=== PATIENT | female | born 1955 | race Caucasian/White ===

== ENCOUNTER 2017-10-08 12:36 | Emergency (ER) | payer BC ==
[~2017-10-08] VITALS: Ht 160 cm; Wt 124.0 kg
[~2017-10-08 12:36] MED LIST: ALBU0.08 INH; ALBU1AER9 INH; AMPH20CA3 PO; AMPH30TA2 PO; DICL-201 PO; LSX20 PO; OXYC-106 PO; PRD20 PO; TOPI25TA99 PO
[2017-10-08 12:39] VITALS: TEMP 36.3; Ht 160 cm; Wt 124.0 kg
--- NOTE | 2017-10-08 12:50 | EMERGENCY ROOM VISIT NOTE ---
History Report prepared by Pietro: Carlyle Perea Under the Supervision of: Dr. Eulogio Acosta D.O. First contact with patient: 12:43 Chief Complaint: ALLERGIC REACTION Stated Complaint: SHORTNESS OF BREATH, ITCHING Nursing Triage Summary: pt to the ED after taking amoxicillin for pre medication for dental proceedure and then started to have a allergic reaction. staff there gave her 2 benedryl [employer]ET[employer] and told her to come here History of Present Illness The patient is a 61 year old female who presents to the Emergency Room with complaints of allergic reaction. She went to get a crown and had to premedicate prior to seeing her dentist Dr. Kadeem Crowell. She has surgical history of bilateral knee replacement and shoulder replacement. She took 4 pills of Amoxicillin to premedicate per her surgeon's advice. An hour into getting her crown, her heart started beating faster, her eyes swelled shut, her hands (palms ) started itching, and endorses shortness of breath. She was given Benadryl. Endorses productive cough that began 1 day ago but denies runny nose. Of note, the patient has taken Amoxicillin before without any reactions. The patient has a history of asthma. Denies a history of hyperlipidemia, hypertension, heart disease, and DM. Source of History: patient Onset: prior to arrival Position: other (general) Quality: other (generalized itching) Timing: constant Associated Symptoms: + cough (productive), + SOB Note: Additional Symptoms: Denies runny nose Endorses eye swelling shut, itchy palms, and faster heart palpitations Review of Systems See HPI for pertinent positives & negatives. A total of 10 systems reviewed and were otherwise negative. Past Medical & Surgical Medical Problems: (1) Arthritis (2) Bronchitis (3) cuff arthropathy left shoulder (4) Hx Knee replacement (5) Rotator cuff injury Surgical Problems: (1) H/O spinal fusion Family History Cancer FATHER Gallbladder disease Social History Smoking Status: Former Smoker Marital Status: Housing Status: lives with significant other Occupation Status: employed Current/Historical Medications Scheduled Amphetamine-Dextroamphetamine 10MG (Adderall Xr 10MG), 10 MG PO Q2D Amphetamine-Dextroamphetamine 30MG (Adderall 30MG), 30 MG PO DAILY Diclofenac (Voltaren), 75 MG PO BID Furosemide (Lasix), 20 MG PO Q2D Prednisone (Prednisone), 50 MG PO DAILY Topiramate (Topamax ), 25 MG PO QPM Scheduled PRN Albuterol Hfa (Ventolin Hfa), 2-4 PUFFS INH Q6H PRN for SOB/Wheezing Albuterol Sulf (Albuterol Sulfate), 1 VIAL INH Q4H PRN for SOB/Wheezing Oxycodone/Acetaminophen 10MG/325MG (Percocet 10MG/325MG), 1 TAB PO Q6H PRN for N Prednisone (Prednisone), 20 MG PO UD PRN for N Allergies Coded Allergies: Codeine (Verified Allergy, Severe, RESP DISTRESS, TOLERATED HYDROMORPHONE- SWELLING, 10/08/17) Dust (Unverified Allergy, Unknown, DUST, MOLDS-WHEEZING, 10/08/17) Adhesives (Verified Adverse Reaction, Mild, LOCAL SKIN IRRITATION, ) Aspirin (Verified Adverse Reaction, Unknown, "jittery",RASH, 10/08/17) Physical Exam Vital Signs Date Time Temp Pulse Resp B/P (MAP) Pulse Ox O2 Delivery O2 Flow Rate FiO2 10/08/17 14:21 83 18 155/102 96 10/08/17 12:39 36.3 91 20 139/71 97 Room Air Physical Exam GENERAL: Sitting up in bed, alert, well appearing, well nourished, no distress, non-toxic, full sentences, morbidly obese EYE EXAM: normal conjunctiva. OROPHARYNX: no exudate, no erythema, lips, buccal mucosa, and tongue normal and mucous membranes are moist NECK: supple, no nuchal rigidity, no adenopathy, non-tender LUNGS: Clear to auscultation. Normal chest wall mechanics HEART: no murmurs, S1 normal and S2 normal ABDOMEN: abdomen soft, non-tender, normo-active bowel sounds, no masses, no rebound or guarding. BACK: Back is symmetrical on inspection and there is no deformity, no midline tenderness, no CVA tenderness. SKIN: Diffuse erythematous, macular blanching rash, negative urticaria; positive Nikolsy sign UPPER EXTREMITIES: upper extremities are grossly normal. LOWER EXTREMITIES: No pitting edema. NEURO EXAM: Normal sensorium, cranial nerves II-XII grossly intact, normal speech, no gross weakness of arms, no gross weakness of legs. Gross sensation intact. Medical Decision & Procedures Laboratory Results 10/08/17 13:10 Red Blood Count 5.52, Mean Corpuscular Volume 89.5, Mean Corpuscular Hemoglobin 31.5, Mean Corpuscular Hemoglobin Concent 35.2, Mean Platelet Volume 9.5, Neutrophils (%) (Auto) 81.7, Lymphocytes (%) (Auto) 14.2, Monocytes (%) (Auto) 3.0, Eosinophils (%) (Auto) 0.6, Basophils (%) (Auto) 0.2, Neutrophils # (Auto) 11.67, Lymphocytes # (Auto) 2.03, Monocytes # (Auto) 0.43, Eosinophils # (Auto) 0.09, Basophils # (Auto) 0.03 10/08/17 13:10 Test 10/08/17 13:10 White Blood Count 14.30 K/uL (4.8-10.8) Red Blood Count 5.52 M/uL (4.2-5.4) Hemoglobin 17.4 g/dL (12.0-16.0) Hematocrit 49.4 % (37-47) Mean Corpuscular Volume 89.5 fL (80-100) Mean Corpuscular Hemoglobin 31.5 pg (25-34) Mean Corpuscular Hemoglobin Concent 35.2 g/dl (32-36) Platelet Count 286 K/uL (130-400) Mean Platelet Volume 9.5 fL (7.4-10.4) Neutrophils (%) (Auto) 81.7 % Lymphocytes (%) (Auto) 14.2 % Monocytes (%) (Auto) 3.0 % Eosinophils (%) (Auto) 0.6 % Basophils (%) (Auto) 0.2 % Neutrophils # (Auto) 11.67 K/uL (1.4-6.5) Lymphocytes # (Auto) 2.03 K/uL (1.2-3.4) Monocytes # (Auto) 0.43 K/uL (0.11-0.59) Eosinophils # (Auto) 0.09 K/uL (0-0.5) Basophils # (Auto) 0.03 K/uL (0-0.2) RDW Standard Deviation 44.9 fL (36.4-46.3) RDW Coefficient of Variation 13.6 % (11.5-14.5) Immature Granulocyte % (Auto) 0.3 % Immature Granulocyte # (Auto) 0.05 K/uL (0.00-0.02) Anion Gap 5.0 mmol/L (3-11) Est Creatinine Clear Calc Drug Dose 83.8 ml/min Estimated GFR () 80.5 Estimated GFR (Non- 69.5 BUN/Creatinine Ratio 23.5 (10-20) Calcium Level 9.3 mg/dl (8.5-10.1) Medications Administered Medications (Trade) Dose Ordered Sig/William Route Start Time Stop Time Status Last Admin Dose Admin Methylprednisolone Sodium Succinate (Solu-Medrol IV) 125 mg NOW STAT IV 10/08/17 12:52 10/08/17 12:55 DC 10/08/17 13:12 125 MG Famotidine (Pepcid 20mg Iv Push) 20 mg ONE STAT IV 10/08/17 12:52 10/08/17 12:55 DC 10/08/17 13:12 20 MG ECG Rate (beats per minute): 83 Rhythm: sinus rhythm Findings: PVC, other (normal axis) ED Course ED COURSE: Vital signs were reviewed and showed hypertensive situational. The patients medical record was reviewed The above diagnostic studies were performed and reviewed. ED treatments and interventions as stated above. Susan Harper: The patient was evaluated in room B3. A complete history and physical examination was performed. 1401: Upon reevaluation, the patient has a complete resolution of all symptoms.I discussed my findings with the patient and she understands and agrees with the treatment plan. Based on the patients age, coexisting illnesses, exam and lab findings the decision to treat as an outpatient was made. The patient remained stable while under my care. The patient appeared well at the time of discharge. Medical Decision Differential diagnoses includes but is not limited to acute coronary syndrome, myocardial infarction, pericarditis, pulmonary embolus, aortic dissection, pneumonia, pneumothorax, musculoskeletal, shingles, esophageal. Patient is a 59-year-old female who presents to ER following taking Fortaz amoxicillin to premedicate for a dental procedure. An hour into the procedure she started itching in her hands and having full body erythema. She was given Benadryl. She did have some mild shortness of breath with this. She does admit to a cough and congestion which started yesterday. She has had tingling in her hands recently with taking amoxicillin but has never had this before. CBC shows a mild leukocytosis. BMP was unremarkable. EKG was nondiagnostic. Chest x-ray was unremarkable. Patient completely resolution of her symptoms following IV steroids and famotidine. Rash completely resolved. Patient was discharged follow-up with PCP. I do not believe that this is cardiac at this time so she since has no history of diabetes, hypertension, hyperlipidemia, CAD or sudden in the family at a young age.. Discussed with Pt concerning signs and symptoms to watch out for. Pt was instructed to follow up with their PCP and discussed with the patient their option to return to the ED at anytime for persistent or worsening symptoms. The appropriate anticipatory guidance and out-patient management, including indications for return to the emergency department, were explained at length to the patient and understood. Impression Primary Impression: Allergic reaction Scribe Attestation The scribe's documentation has been prepared under my direction and personally reviewed by me in its entirety. I confirm that the note above accurately reflects all work, treatment, procedures, and medical decision making performed by me. Departure Information Prescriptions Prednisone (PREDNISONE) 50 Mg Tab 50 MG PO DAILY for 1 Day, #1 TAB Prov: Eulogio Acosta, DO 10/08/17 Referrals Tee Bridges M.D. (PCP) Patient Instructions My [facility] Problem Qualifiers Primary Impression: Allergic reaction Encounter type: initial encounter Qualified Codes: T78.40XA - Allergy, unspecified, initial encounter
[2017-10-08] MEDS ORDERED: FAMOTIDINE 20MG/5ML IV PUSH IV STA (12:52)
[2017-10-08] MEDS ORDERED: METHYLPREDNISOLONE 125 MG VIAL IV STA (12:52)
[2017-10-08] MEDS ORDERED: RRALBUTNEB INH (13:08)
[2017-10-08] MEDS ORDERED: VNTHFA/IN INH (13:08)
[2017-10-08] MEDS ORDERED: AMPH10CA3 PO (13:08)
[2017-10-08] MEDS ORDERED: FURO-85 PO (13:08)
--- NOTE | 2017-10-08 13:28 | DIAGNOSTIC IMAGING REPORT ---
CHEST ONE VIEW PORTABLE HISTORY: cough COMPARISON: Chest 07/04/2016. FINDINGS: The lungs are clear. Cardiac silhouette is normal in size. No pleural effusions. No pneumothorax. Left shoulder prosthesis. IMPRESSION: No acute process. Electronically signed by: Lemuel Griffiths M.D. 10/08/2017 1:26 PM Dictated Date/Time: 10/08/2017 1:20 PM
[2017-10-08 13:39] LABS: BASO % 0.2 %; BASO ABS # 0.03 K/uL (0-0.2); COMPLETE YES; EOS % 0.6 %; HEMATOCRIT 49.4 % (37-47); IG% 0.3 %; LYMPH % 14.2 %; LYMPH ABS # 2.03 K/uL (1.2-3.4); MEAN CELL VOLUME 89.5 fL (80-100); MEAN CORPUSCULAR HEMOGLOBIN 31.5 pg (25-34); MEAN CORPUSCULAR HGB CONC 35.2 g/dl (32-36); MEAN PLATELET VOLUME 9.5 fL (7.4-10.4); NEUT % 81.7 %; PLATELET COUNT 286 K/uL (130-400); RED BLOOD COUNT 5.52 M/uL (4.2-5.4)
[2017-10-08 13:43] LABS: BUN/CREATININE RATIO 23.5 (10-20); CALCIUM 9.3 mg/dl (8.5-10.1); CREATININE 0.89 mg/dl (0.60-1.20); POTASSIUM 3.6 mmol/L (3.5-5.1)
[2017-10-08] MEDS ORDERED: PRED50TA PO (14:03)
[2017-10-08 14:21] VITALS: BP 155/102; PULSE 83; O2SAT 96
== END 2017-10-08 14:22 | disposition home or self-care (01) ==
LOC: C.EDB 12:37
DX: T78.40XA Allergy, unspecified, initial encounter (principal); X58.XXXA Exposure to other specified factors, initial encounter; J45.909 Unspecified asthma, uncomplicated; Z87.891 Personal history of nicotine dependence; Z96.653 Presence of artificial knee joint, bilateral; Z96.619 Presence of unspecified artificial shoulder joint; Z98.1 Arthrodesis status

== ENCOUNTER 2023-05-10 08:32 | Inpatient (IN) ==
--- NOTE | 2023-03-26 11:42 | PAT Medication Instructions ---
Medication Instructions Date of Service March 26, 2023 Home Medications albuterol sulfate 2.5 mg/3 mL (0.083 %) solution for nebulization 2.5 mg inhalation Q4H PRN albuterol sulfate 90 mcg/actuation aerosol inhaler (ProAir HFA) 2 puff inhalation Q6H PRN diclofenac sodium 75 mg tablet,delayed release 75 mg PO BID fluticasone propionate 220 mcg/actuation HFA aerosol inhaler (Flovent HFA) 2 puff inhalation BID PRN furosemide 20 mg tablet 20 mg PO Q3D gabapentin 100 mg capsule 100 mg PO TID prednisone 20 mg tablet 20 mg PO DAILY PRN vit C 250 mg-vit E 90 mg-zinc 40 mg-copper 1 hr-ayysdb-ymgapv capsule (PreserVision AREDS-2) 1 tab PO BID multivitamin-ferrous fumarate-folic acid 18 mg-400 mcg tablet (Centrum) 1 tab PO HS Continue as directed prednisone 20 mg tablet 20 mg PO DAILY PRN(if needed) ASK your surgeon for instructions diclofenac sodium 75 mg tablet,delayed release 75 mg PO BID STOP taking 2 weeks before surgery (or as soon as possible if surgery is within 2 weeks) vit C 250 mg-vit E 90 mg-zinc 40 mg-copper 1 bp-khlpbr-rukfuz capsule (PreserVision AREDS-2) 1 tab PO BID DO NOT take the morning of surgery furosemide 20 mg tablet 20 mg PO Q3D Take morning of surgery With a small sip of water, OTHERWISE NOTHING TO EAT OR DRINK AFTER MIDNIGHT: albuterol sulfate 2.5 mg/3 mL (0.083 %) solution for nebulization 2.5 mg inhalation Q4H PRN(if needed) albuterol sulfate 90 mcg/actuation aerosol inhaler (ProAir HFA) 2 puff inhalation Q6H PRN(use if needed; please bring with you to hospital day of surgery if possible) fluticasone propionate 220 mcg/actuation HFA aerosol inhaler (Flovent HFA) 2 puff inhalation BID PRN(if needed) gabapentin 100 mg capsule 100 mg PO TID Take evening before surgery albuterol sulfate 2.5 mg/3 mL (0.083 %) solution for nebulization 2.5 mg inhalation Q4H PRN(if needed) albuterol sulfate 90 mcg/actuation aerosol inhaler (ProAir HFA) 2 puff inhalation Q6H PRN(if needed) fluticasone propionate 220 mcg/actuation HFA aerosol inhaler (Flovent HFA) 2 puff inhalation BID PRN(if needed) gabapentin 100 mg capsule 100 mg PO TID multivitamin-ferrous fumarate-folic acid 18 mg-400 mcg tablet (Centrum) 1 tab PO HS Other Notes If you have any questions please call us at [phone] or [phone] or [phone] or [phone]
--- NOTE | 2023-04-02 10:48 | Anesthesiology Consultation ---
Date of Service April 02, 2023 Assessment & Plan (1) Encounter for pre-operative examination: Chart Review Chart Review: Acceptable Risk for Surgery and Patient seen in Pre Admission Testing - Pt is NOT an ideal OPJ candidate due to BMI (currently scheduled as 23 hours observation) Per [facility] appt on 04/02/23, patient denies any recent travel or large group activities. Pt is vaccinated for Covid. Will leave to surgeon's discretion if p reop Covid testing needed. Educated on importance of using Covid precautions one week prior to surgery Teaching & Discussion Pre-Anesthesia Teaching/Discussion Notes: Instructed NPO after midnight before surgery,except medications with 15 cc of water. Medication instructions provided according to the [facility] guidelines. History Surgery Operation Date: 05/10/23 07:00 Proposed Procedures p Right Total Shoulder Arthroplasty Marcus - Jose Pedroza DO Height/Weight Height: 5 ft 2 in Weight: 129.1 kg Allergies Allergy/AdvReac Type Severity Reaction Status Date / Time aspirin Allergy Severe airway Verified 03/20/23 11:41 closed/hives morphine Allergy Severe trouble Verified 03/20/23 11:41 breathing adhesive AdvReac Mild LOCAL SKIN Verified 03/20/23 11:41 IRRITATION Dust Allergy Unknown DUST, Uncoded 01/23/23 07:35 MOLDS-WHEEZING Medications Home Medications Medication Instructions Recorded Confirmed Last Taken albuterol sulfate 2.5 mg/3 mL 2.5 mg inhalation Q4H PRN 08/01/20 03/20/23 Unknown (0.083 %) solution for nebulization Shortness Of Breath albuterol sulfate 90 mcg/actuation 2 puff inhalation Q6H PRN 08/01/20 03/20/23 Unknown aerosol inhaler (ProAir HFA) Shortness Of Breath diclofenac sodium 75 mg 75 mg PO BID 08/01/20 03/20/23 01/22/23 tablet,delayed release fluticasone propionate 220 2 puff inhalation BID PRN 08/01/20 03/20/23 Unknown mcg/actuation HFA aerosol inhaler Shortness Of Breath (Flovent HFA) furosemide 20 mg tablet 20 mg PO Q3D 08/01/20 03/20/23 01/22/23 gabapentin 100 mg capsule 100 mg PO TID 08/01/20 03/20/23 01/22/23 prednisone 20 mg tablet 20 mg PO DAILY PRN asthma rescue 08/01/20 03/20/23 Unknown kit vit C 250 mg-vit E 90 mg-zinc 40 1 tab PO BID 01/03/23 03/20/23 01/22/23 mg-copper 1 su-sjlcnn-reywru capsule (PreserVision AREDS-2) multivitamin-ferrous 1 tab PO HS 03/20/23 03/20/23 Unknown fumarate-folic acid 18 mg-400 mcg tablet (Centrum) Past Medical History Medical History Allergy-induced asthma inhalers/nebulizer prn breathing well controlled and stable History of anemia IBS (irritable bowel syndrome) Diarrhea - diet dependent Currently stable Morbid obesity with BMI of 50.0-59.9, adult Sleep apnea bipap Exercise / Class Metabolic Activity II 4-5 Yardwork/Stairs/Walk up hill (one flight of stairs- no chest pain or SOB ) Past Family History Family History Other No family history of adverse response to anesthesia Past Surgical History Surgical History History of arthroscopy of right knee History of cataract surgery left/right History of cholecystectomy History of colonoscopy with polypectomy History of cystoscopy History of esophagogastroduodenoscopy (EGD) History of left breast biopsy benign History of left shoulder replacement History of lumbar spinal fusion History of partial hysterectomy History of repair of right rotator cuff History of total left knee replacement (TKR) History of total right knee replacement (TKR) History of wisdom tooth extraction Past Anesthesia History No Hx of Anesthesia Complications (with exception to slow to wake- just groggy- no reintubation or ICU stay ) and No Family Hx of Anesthesia Complications History of PONV No Hx of PONV and No Hx of Motion Sickness Social History Smoking Status: Former smoker tobacco type: cigarettes Do You Dip or Chew Tobacco: No Smoking End Date: 40 years ago Hx Alcohol Use: Yes Alcohol type: wine alcohol intake frequency: a few times a month Hx Substance Use: No substance use type: does not use Review of Systems Patient denies chest pain, shortness of breath, dyspnea on exertion, reflux, cough, wheezing, palpitations. No hx of seizures, stroke, OK. No hx of blood clots or blood transfusions Physical Exam Vital Signs VITALS BP 137/82 P 71 TEMP 98.0 SP02 95% RESP 16 Constitutional no acute distress ENMT Mouth: no TMJ clicking Thyromental Distance: > or= 3.5 Finger Breadths (3.5) Mallampati Class: I (smaller airway) Neck + thick neck; neck extension not limited Respiratory normal respiratory effort; no respiratory distress Auscultation: lungs clear to auscultation bilaterally; no wheezes Cardiovascular Rate/Rhythm: regular rate and regular rhythm Heart Sounds: no murmur Vessels: no carotid bruit Musculoskeletal Spine: no pain with cervical ROM Extremities: extremities normal to inspection Psychiatric Orientation: alert Lab Results Anesthesia Preop Results Results Anesthesia Widget: WBC 7.74 K/ul (4.8-10.8) 04/02/23 Hgb 15.6 g/dl (12.0-16.0) 04/02/23 Hct 47.0 % (37.0-47.0) 04/02/23 Plt 255 K/uL (130-400) 04/02/23 Na 143 mmol/L (136-145) 04/02/23 K 5.1 mmol/L (3.5-5.1) 04/02/23 Cl 108 mmol/L (98-107) H 04/02/23 CO2 29 mmol/L (21-32) 04/02/23 BUN 21 mg/dl (6-23) 04/02/23 Creat 0.61 mg/dl (0.6-1.2) 04/02/23 Glucose Level 101 mg/dl (70-99(Fasting)) H 04/02/23 PT 10.8 Seconds (9.0-12.0) 04/02/23 PTT 25.9 Seconds (21.0-31.0) 04/02/23 INR 1.0 (0.9-1.1) 04/02/23 Blood Type O Positive 04/02/23 Antibody Screen NEGATIVE 04/02/23 Testing Electrocardiogram Date: 04/02/23 Findings: + NSR @ (72bpm ) Normal EKG per cardio Chest X-Ray FINDINGS: Reverse left shoulder arthroplasty. Partially imaged lumbar spinal fusion hardware. Cardiomediastinal and hilar silhouettes are unchanged. No pneumothorax, pleural effusion, airspace consolidation or pulmonary edema. IMPRESSION: No acute process. COVID-19 Risk Screen Screening Information COVID-19 Screen Date: 04/02/23 Exposure 21 Days Family/Household +COVID Last 21 Days: No Exposure 10 Days Any COVID Exposure Last 10 Days: No Symptoms Last 10 Days Experienced COVID Sx Last 10 Days: No + COVID 0-90 Days COVID + in Last 0-90 Days: No Risk Plan COVID Risk Plan: No Risk Identified Patient Education COVID Preop Screening Education Complete: Yes
--- NOTE | 2023-05-09 14:16 | History & Physical Report ---
Date of Service May 09, 2023 Assessment & Plan (1) Rotator cuff arthropathy of right shoulder: We will proceed with a right reverse shoulder arthroplasty. Postoperatively she will be placed in a sling and kept overnight in the hospital for postop medical management. She plans to use energy physical therapy upon discharge. History of Present Illness Chief Complaint: Cuff tear arthropathy of the right shoulder. Primary Care Provider: Tee Bridges MD Susan is a pleasant 67-year-old female who has been dealing with chronic increasing right shoulder pain. I did a right shoulder arthroscopy and rotator cuff repair on her in 2014. She then underwent a left reverse shoulder arthroplasty in 2016. She has done well with that. Her shoulder has been doron thering her more and more. X-rays show signs of severe cuff tear arthropathy of the right shoulder. After failing conservative treatment, she has elected to proceed with a right reverse shoulder arthroplasty. . Allergies Allergy/AdvReac Type Severity Reaction Status Date / Time aspirin Allergy Severe airway Verified 03/20/23 11:41 closed/hives morphine Allergy Severe trouble Verified 03/20/23 11:41 breathing adhesive AdvReac Mild LOCAL SKIN Verified 03/20/23 11:41 IRRITATION Dust Allergy Unknown DUST, Uncoded 01/23/23 07:35 MOLDS-WHEEZING Home Medications Medication Instructions Recorded Confirmed Type albuterol sulfate 2.5 mg/3 mL 2.5 mg inhalation Q4H PRN 08/01/20 03/20/23 History (0.083 %) solution for nebulization Shortness Of Breath albuterol sulfate 90 mcg/actuation 2 puff inhalation Q6H PRN 08/01/20 03/20/23 History aerosol inhaler (ProAir HFA) Shortness Of Breath diclofenac sodium 75 mg 75 mg PO BID 08/01/20 03/20/23 History tablet,delayed release fluticasone propionate 220 2 puff inhalation BID PRN 08/01/20 03/20/23 History mcg/actuation HFA aerosol inhaler Shortness Of Breath (Flovent HFA) furosemide 20 mg tablet 20 mg PO Q3D 08/01/20 03/20/23 History gabapentin 100 mg capsule 100 mg PO TID 08/01/20 03/20/23 History prednisone 20 mg tablet 20 mg PO DAILY PRN asthma rescue 08/01/20 03/20/23 History kit vit C 250 mg-vit E 90 mg-zinc 40 1 tab PO BID 01/03/23 03/20/23 History mg-copper 1 [id number]-vzdicg capsule (PreserVision AREDS-2) multivitamin-ferrous 1 tab PO HS 03/20/23 03/20/23 History fumarate-folic acid 18 mg-400 mcg tablet (Centrum) Past Med/Surg History Medical History Allergy-induced asthma inhalers/nebulizer prn breathing well controlled and stable History of anemia IBS (irritable bowel syndrome) Diarrhea - diet dependent Currently stable Morbid obesity with BMI of 50.0-59.9, adult Sleep apnea bipap Surgical History History of arthroscopy of right knee History of cataract surgery left/right History of cholecystectomy History of colonoscopy with polypectomy History of cystoscopy History of esophagogastroduodenoscopy (EGD) History of left breast biopsy benign History of left shoulder replacement History of lumbar spinal fusion History of partial hysterectomy History of repair of right rotator cuff History of total left knee replacement (TKR) History of total right knee replacement (TKR) History of wisdom tooth extraction Family History Other No family history of adverse response to anesthesia Social History Smoking Status: Former smoker Smoking End Date: 40 years ago; Second Hand Exposure: No; Do You Dip or Chew Tobacco: No; Tobacco Cessation Education Requested by Patient: No Hx Alcohol Use: Yes Alcohol type: wine Hx Substance Use: No Preferred Language: Micronesian Communication Ability: Effective Chronometer Assembler And Adjuster Required: No Beliefs That Will Affect Care: None Current Living Situation: Spouse Other Information That Helps Us Care for You: No Feels Safe at Home: Yes Safety Concerns: Feels Safe At This Time Assistive Devices: BiPap and Glasses Review of Systems All systems reviewed & are unremarkable except as noted in HPI & below. Physical Exam On physical examination of right shoulder, she has decreased range of motion. She has pain with range of motion and crepitus.. Constitutional WD/WN, vitals as above Eyes PERRL, conjunctivae normal, anicteric sclerae ENMT external ear and nose normal, oropharynx normal Neck trachea midline, no thyromegaly Respiratory normal respiratory effort, lungs clear to auscultation Cardiovascular RRR, no murmur, no edema Gastrointestinal (Abdomen) normal bowel sounds, soft, nontender, no hepatosplenomegaly Skin no rashes, warm and dry Psychiatric A+Ox3, euthymic affect Results & Data Results & Data Laboratory Results . Diagnostic Findings X-rays of the right shoulder show advanced cuff tear arthropathy with superior migration of the humeral head on the glenoid.. PG Care Time/CCT Total # of Minutes Spent Total Time Spent with Patient: Total time spent is greater than 50% in coordination of care (as documented) at patient's floor/unit and/or counseling patient: Coding Level of Care Code None Diagnoses Rotator cuff arthropathy of right shoulder M12.811
[~2023-05-10 08:32] MED LIST changes: +ACETAMINOPHEN 500 MG TAB PO SCH; -ALBU0.08 INH; -ALBU1AER9 INH; -AMPH20CA3 PO; -AMPH30TA2 PO; -DICL-201 PO; +FAMOTIDINE 20 MG TAB PO SCH; +GABAPENTIN 300 MG CAP PO SCH; +LR 15ML/HR IV SCH; +LR 60ML/HR IV SCH; -LSX20 PO; +ORTHO JOINT MIX INFIL SCH; -OXYC-106 PO; -PRD20 PO; -TOPI25TA99 PO; +TRANEXAMIC ACID 1,000 MG **IV Intra-op IV SCH; +TRANEXAMIC ACID 1,000 MG **IV Pre-op IV SCH; +dexAMETHasone 4 MG TAB PO SCH
[2023-05-10] MEDS ORDERED: BUPIVACAINE 0.5 % 5 MG/1 ML PF 10ML VIAL ONE (08:53)
[2023-05-10] MEDS ORDERED: MIDAZOLAM HCL 1 MG/ML 2ML VIAL ONE (09:31)
[2023-05-10] MEDS ORDERED: fentaNYL citrate PF 100 MCG/2 ML VIAL ONE (09:31)
--- NOTE | 2023-05-10 10:09 | History & Physical Bridge Note ---
Date of Service May 10, 2023 History & Physical Bridge Note I have examined the patient, reviewed the History & Physical and in the interval since the performance of the History & Physical I have noted the following changes of clinical significance: no changes noted
[2023-05-10] MEDS ORDERED: ATROPINE SULFATE 0.1 MG/ML 10ML SYR IV PRN (10:22)
[2023-05-10] MEDS ORDERED: fentaNYL citrate PF 100 MCG/2 ML VIAL IV PRN (10:22)
[2023-05-10] MEDS ORDERED: ONDANSETRON INJ 2 MG/ML 2 ML VIAL IV PRN ×2 (10:22→15:29)
[2023-05-10] MEDS ORDERED: ePHEDrine sulfate 50 MG/ML AMP IV PRN (10:22)
[2023-05-10] MEDS ORDERED: ORTHO JOINT ANESTHETIC ONE (10:44)
[2023-05-10] MEDS ORDERED: LIDOCAINE 2% 2 ML VIAL/AMP(20MG/ML) INFIL ONE (11:30)
[2023-05-10] MEDS ORDERED: PROPOFOL IV EMULSION 10 MG/ML 20 ML VIAL IV ONE (11:30)
[2023-05-10] MEDS ORDERED: ONDANSETRON INJ 2 MG/ML 2 ML VIAL ONE (11:30)
[2023-05-10] MEDS ORDERED: DEXAMETHASONE SOD INJ 4 MG/ML VIAL ONE (11:30)
[2023-05-10] MEDS ORDERED: KETOROLAC 30 MG/ML VIAL ONE (11:53)
--- NOTE | 2023-05-10 12:21 | Operative Report ---
PG Post Operative Report Pre & Post Diagnosis Operation Date: 05/10/23 11:00 Pre-Op Diagnosis: Cuff tear arthropathy of the right shoulder Post-Op Diagnosis: Cuff tear arthropathy of the right shoulder I identified the patient and participated in the time-out.: Yes Procedure Operation Date: 05/10/23 11:00 Actual Procedures p Right Total Shoulder Arthroplasty Reverse (Right) - Jose Pedroza DO Surgeon Jose Pedroza DO Assistant Produce Manager Jose Bullard PA-C Estimated Blood Loss 250 Findings Consistent with Post-Op Diagnosis Specimens Right humeral head Description of Procedure Implants used: I used a [employer]omet Comprehensive reverse total shoulder arthroplasty system with a size 6 press fit micro humeral stem, a +6 offset humeral tray and a standard humeral bearing, a 25 mm large augment baseplate with a 6.5 mm central screw and superior, posterior and inferior locking screws, and a size 36 mm eccentric glenosphere. Susan arrived at [facility] for the above procedure. She was seen in the preoperative holding area and the operative extremity was identified and signed. She was given a preoperative antibiotic, TXA, and an interscalene nerve block. She was taken back to the operating room, laid on table in supine position, and put under general anesthesia. She was then put into the beachchair position. The shoulder was then prepped and draped in sterile fashion. A timeout was done and the patient and the operative extremity was properly identified. A deltopectoral approach was used. Dissection was taken down through the fascia and the deltoid was retracted laterally and the conjoined tendon was retracted medially. The anterior shoulder was exposed. The biceps tendon was already missing. The subscapularis was then directly released off the lesser tuberosity with a peel technique. The inferior capsule was released and the humeral head was dislocated. A canal finding reamer was sent down the center of the humeral canal. Sequential reaming up to a size 6 reamer was done. Off that reamer, a proximal humeral resection guide was placed. The proximal humerus was resected at 135 of inclination and 25 of retroversion. Osteophytes were then removed and the glenoid was exposed. Time was spent doing a complete capsular and labral release. A [employer] Signature One guide was then attached onto the anterior rim of the glenoid. A 3.2 mm Steinmann pin was then placed in the reverse total shoulder arthroplasty hole. The glenoid baseplate was then reamed. The final size 25 mm large augment baseplate was then impacted in the place. A 6.5 mm central screw was then placed followed by superior, posterior and inferior locking screws. A 36 mm eccentric glenosphere was then impacted into place. Surrounding soft tissues were then injected with 100 cc an orthopedic pain control cocktail. The proximal humerus was then exposed. Sequential broaching of the humerus up to a size 6 broach was done. Off that broach a +6 offset humeral tray was trialed. The shoulder was then reduced, brought through a full range of motion, and felt to be stable. The shoulder was then dislocated and the broach was removed. The final size 6 micro press-fit humeral stem was then impacted into place. A standard humeral bearing was then snapped onto a +6 offset humeral tray. The humeral tray was then impacted onto the humeral stem. The shoulder was once again reduced, brought through a full range of motion, and felt to be stable. Subscapularis was retracted and unable to be repaired. A dilute betadyne lavage was then done for 3 minutes. The joint was then irrigated with normal saline solution. Hemostasis was obtained. The interval was closed with 2-0 Vicryl suture. The skin was then closed with 2-0 Vicryl and jose j. A Silverlon dressing was placed and the arm was rested in a regular arm sling. She was then extubated and transferred to a hospital bed. She taken to the postanesthesia care unit in stable condition. She tolerated the procedure well. Jose Bullard PA-C, was present for the entire procedure. He was critical for patient positioning, prepping, draping, retraction exposure, wound closure and application of sterile dressing. I attest to the content of the Intraoperative Record and any orders documented therein. Any exceptions are noted below.
[2023-05-10] MEDS ORDERED: hydrALAZINE HCL 20 MG/ML VIAL ONE (13:14)
[2023-05-10] MEDS ORDERED: hydrALAZINE HCL 20 MG/ML VIAL IM STA (13:17)
[2023-05-10] MEDS ORDERED: hydrALAZINE HCL 20 MG/ML VIAL IV STA (13:31)
--- NOTE | 2023-05-10 13:34 | XRay Report ---
RIGHT SHOULDER 2 VIEWS CLINICAL HISTORY: Postoperative examination. FINDINGS: 2 portable views of the right shoulder are compared to study dated 01/15/2023. The skeletal structures are osteopenic. A right shoulder arthroplasty is in near anatomic alignment. No acute frac ture is seen. Productive degenerative change is noted at the acromioclavicular joint. Skin clips, sub cutaneous gas, and soft tissue swelling overlying the right shoulder are expected postsurgical findin gs. The visualized right lung parenchyma appears clear noting platelike atelectasis. IMPRESSION: Expected postoperative findings status post right shoulder arthroplasty. No acute fractur e is seen. Electronically signed by: Conor Herrmann M.D. 05/10/2023 1:33 PM
--- NOTE | 2023-05-10 13:42 | Anesthesiology Progress Note ---
Date of Service May 10, 2023 Anesthesia Post Procedure Vital Signs Vital Signs: Temp Pulse Resp BP Pulse Ox O2 Del Method O2 Flow Rate 05/10/23 13:40 73 18 150/90 H 96 Nasal Cannula 2 05/10/23 13:30 97.5 F L 78 18 155/93 H 96 Nasal Cannula 4 05/10/23 13:20 73 20 161/92 H 95 Nasal Cannula 4 05/10/23 13:10 78 19 168/108 H 95 Oxymask 5 05/10/23 13:00 76 20 163/91 H 97 Oxymask 5 05/10/23 12:50 70 17 159/100 H 95 Oxymask 5 05/10/23 12:43 97.3 F L 74 20 163/107 H 95 Oxymask 5 05/10/23 09:23 98.2 F 84 20 181/96 H 93 Room Air Pain Intensity Right Shoulder: Pain Intensity: 5 Transfer of Care Handoff Completed per policy Notes Mental Status: alert / awake / arousable and participated in evaluation Patient Amnestic to Procedure: Yes Nausea / Vomiting: adequately controlled Pain: adequately controlled Airway Patency, RR, SpO2: stable & adequate BP & HR: stable & adequate Hydration State: stable & adequate Anesthetic Complications: no major complications apparent and Pt Satisfied with anesthetic care
[2023-05-10] MEDS ORDERED: predniSONE 20 MG TAB PO PRN (15:29)
[2023-05-10] MEDS ORDERED: METOCLOPRAMIDE HCL INJ 5 MG/ML 2 ML VIAL IV PRN (15:29)
[2023-05-10] MEDS ORDERED: SODIUM CHLORIDE 0.9% 1000ML 1,000 ML IV SCH (15:29)
[2023-05-10] MEDS ORDERED: NALOXONE HCL 0.4 MG/1 ML VIAL/CARP IV PRN (15:29)
[2023-05-10] MEDS ORDERED: bisacodyL 10 MG SUPP PR PRN (15:29)
[2023-05-10] MEDS ORDERED: HYDROmorphone INJ 0.5 MG/0.5 ML SYR IV PRN (15:29)
[2023-05-10] MEDS ORDERED: ALBUTEROL 0.083% NEBU SOLN 3 ML VIAL INH PRN (15:29)
[2023-05-10] MEDS ORDERED: ALBUTEROL HFA 8 GM INHALER INH PRN (15:29)
[2023-05-10] MEDS ORDERED: MAGNESIUM HYDROXIDE SUSP 30 ML UDC PO PRN (15:29)
[2023-05-10] MEDS ORDERED: FLUTICASONE FUROATE 200MCG 14 PUFFS/INHALER INH PRN (15:53)
[2023-05-10] MEDS: oxyCODONE HCL IR 5 MG TAB (IMMEDIATE RELEASE) PO PRN (16:21)
[2023-05-10] MEDS: GABAPENTIN 100 MG CAP PO SCH ×2 (16:49→20:36)
[2023-05-10] MEDS: ceFAZolin 2000MG 2,000 MG/15 ML SYR IV SCH (18:28)
--- NOTE | 2023-05-10 18:54 | Hospitalist Consultation ---
Date of Consultation May 10, 2023 Assessment & Plan (1) Acute postoperative respiratory insufficiency: (2) Status post reverse total replacement of right shoulder: - Pain management, bowel regimen and DVT ppx per the primary team - PT/OT consults, pt is planning on outpatient therapy - Follow am CBC to monitor for acute blood loss, last Hgb was 15.6 on 04/02/23 (3) Sleep apnea: (4) Chronic diastolic CHF (congestive heart failure): - Appears on Xray of the R shoulder from today that she is volume overloaded, checking CXR stat, previous cxr was from over 1 mo ago and was clear - Pt is on 4 L via NC with sats 94%, does not normally require O2 during day, wears bipap HS - Last dose of lasix 20 mg po was on Saturday, will administer 40 mg IV lasix now, takes 20 mg po MWF normally - Place pur wick, strict I/Os - Turn off maintenance fluids since she is tolerating po without difficulty - Check BMP, troponin - Check EKG stat - Has hx of allergies and asthma - pt feels only slightly improved with a breathing treatment (5) History of anemia: - Cont MVI with iron (6) IBS (irritable bowel syndrome): - Last BM was this morning, continue stool softeners and miralax (7) Morbid obesity with BMI of 50.0-59.9, adult: BMI of 52.7, diet and exercise to be encouraged throughout hospital stay DVT PPx: - teds, scds CODE: Full code Dispo: From home, likely to remain in the hospital x 1-2 days A total of 45 minutes were spent with greater than 50% of that time face to face with the patient, personally reviewing all current laboratories, imaging studies, past medication reconciliation, outpatient chart review, and discussion with specialists to collaborate care for the patient with attending. Please see attending documentation for corrections and/or additions. Supervising Physician Co-Signing Physician Notes I have seen and examined the patient and have discussed the case with the provider above. I agree with the assessment and plan as stated. 67 yo morbidly obese female off lasix at home for 3 days is unable to successfully wean off oxygen 2/2 pulmonary edema. She is breathing comfortable after lasix 40mg IV. Nino placed. Will plan to continue her oral lasix in am, however, if any further respiratory issues ensue or she needs multiple doses of intravenous lasix, consider transferring to telemetry. Hemodynamically stable and afebrile. Oxygenating 98% on 4LPM via NC. My physical exam reflects that listed above. Medications reviewed. Thank you for this consultation. DO Tano History of Present Illness Reason for Consultation: Medical management, Shortness of breath Requesting Physician: Dr. Pedroza Attending Physician: Jose Pedroza DO History of Present Illness This is a 67 yo F with PMhx of chronic diastolic CHF, IBS, morbid obesity with BMI of 52.7, sleep apnea on BiPAP, history of anemia, allergy induced asthma, who presented today for elective right total reverse shoulder replacement by Dr. Pedroza. Pt had been doing well recently. Multiple family members are present at bedside during our conversation. She reports increased shortness of breath since being out of surgery. She describes a heaviness in her chest and feels like she is working more to breath. Pts right arm is still numb s/p surgery but is able to move her hands. Denies any sharp stabbing chest pain. Whenever she got up to walk to the bathroom to urinate, she tacho lightheaded and dizzy a bit ago, denies any falls, but did need the nurse to help her. At baseline does not require supplemental O2, wears a BiPAP at night routinely, she is currently requiring 4 L nasal cannula with O2 sats 94%. Last BM was this morning. Pt reports she hasn't taken lasix since Saturday, and normally takes this MWF. Pt denies feeling more edematous in her hands or feet. Allergies Allergy/AdvReac Type Severity Reaction Status Date / Time aspirin Allergy Severe airway Verified 05/10/23 09:19 closed/hives morphine Allergy Severe trouble Verified 05/10/23 09:19 breathing adhesive AdvReac Mild LOCAL SKIN Verified 05/10/23 09:19 IRRITATION Home Medications Medication Instructions Recorded Confirmed Type albuterol sulfate 2.5 mg/3 mL 2.5 mg inhalation Q4H PRN 08/01/20 05/10/23 History (0.083 %) solution for nebulization Shortness Of Breath albuterol sulfate 90 mcg/actuation 2 puff inhalation Q6H PRN 08/01/20 05/10/23 H istory aerosol inhaler (ProAir HFA) Shortness Of Breath diclofenac sodium 75 mg 75 mg PO BID 08/01/20 05/10/23 History tablet,delayed release fluticasone propionate 220 2 puff inhalation BID PRN 08/01/20 05/10/23 History mcg/actuation HFA aerosol inhaler Shortness Of Breath (Flovent HFA) furosemide 20 mg tablet 20 mg PO UD 08/01/20 05/10/23 History gabapentin 100 mg capsule 100 mg PO TID 08/01/20 05/10/23 History prednisone 20 mg tablet 20 mg PO DAILY PRN asthma rescue 08/01/20 05/10/23 History kit vit C 250 mg-vit E 90 mg-zinc 40 1 tab PO BID 01/03/23 05/10/23 History mg-copper 1 cr-ocxkoa-npbpao capsule (PreserVision AREDS-2) multivitamin-ferrous 1 tab PO HS 03/20/23 05/10/23 History fumarate-folic acid 18 mg-400 mcg tablet (Centrum) duloxetine 30 mg capsule,delayed 30 mg PO DAILY 05/10/23 05/10/23 History release Patient History Medical History Allergy-induced asthma inhalers/nebulizer prn breathing well controlled and stable Chronic diastolic CHF (congestive heart failure) History of anemia IBS (irritable bowel syndrome) Diarrhea - diet dependent Currently stable Morbid obesity with BMI of 50.0-59.9, adult Sleep apnea bipap Surgical History History of arthroscopy of right knee History of cataract surgery left/right History of cholecystectomy History of colonoscopy with polypectomy History of cystoscopy History of esophagogastroduodenoscopy (EGD) History of left breast biopsy benign History of left shoulder replacement History of lumbar spinal fusion History of partial hysterectomy History of repair of right rotator cuff History of total left knee replacement (TKR) History of total right knee replacement (TKR) History of wisdom tooth extraction Family History Other No family history of adverse response to anesthesia Social History Smoking Status: Former smoker Smoking End Date: 40 years ago; Second Hand Exposure: No; Do You Dip or Chew Tobacco: No; Tobacco Cessation Education Requested by Patient: No Hx Alcohol Use: Yes Alcohol type: wine Hx Substance Use: No Preferred Language: Serbian Communication Ability: Effective Die Press Operator Required: No Beliefs That Will Affect Care: None Current Living Situation: Spouse Other Information That Helps Us Care for You: No Feels Safe at Home: Yes Safety Concerns: Feels Safe At This Time Assistive Devices: BiPap and Glasses Review of Systems Review of Systems: Constitutional: No fever, sweats or chills Eyes: No diplopia, no worsening or blurred vision ENT: normal hearing, no trouble swallowing Respiratory: No cough, sputum, + chest heaviness and increased shortness of breath at rest as per HPI Cardiovascular: No chest pain, tightness or palpitations, + lightheadedness and dizziness with standing Abdomen: No pain, nausea, vomiting, diarrhea or constipation, last BM today Musculoskeletal: No joint pain, calf pain, swelling Neurologic: No weakness, numbness/tingling, or balance problems Psychiatric: No anxiety or depression Skin: No rash or itch Physical Exam Physical Exam: General: awake, alert, no apparent distress, + morbidly obese BMI 52.7 Head: Normocephalic, atraumatic ENT: PERRL, EOMI, no pharyngeal exudate, mucous membranes moist Chest: Wearing 4 L NC with O2 sats 94%, breath sounds are diminished on the right side throughout, no crackles wheezing or rails, Cardiac: Regular rate and rhythm, no murmur, no JVD, normal peripheral pulses, good capillary refill Abdominal: NABS x 4 quadrants, soft, nondistended, nontender to palpation, no rebound or guarding Extremities: Right shoulder dressing C/D/I, arm in sling, ice pack in place. Otherwise normal inspection, no peripheral edema or erythema, calfs nontender to palpation Psych: Normal mood and affect Neuro: AAO x 3, strength intact bilaterally and rated 5/5, no motor deficits, speech is clear, R hand peripheral sensory deficits with numbness s/p surgery, no other peripheral sensory deficits Results & Data Results & Data Vital Signs (Past 12 Hours) Vital Signs Temp Pulse Resp BP Pulse Ox O2 Del Method O2 Flow Rate 05/10/23 18:38 36.7 C 96 H 18 122/72 94 Nasal Cannula 4 05/10/23 17:16 36.7 C 103 H 18 119/56 L 92 Nasal Cannula 2 05/10/23 15:25 Nasal Cannula 2 05/10/23 16:55 91 H 18 95 Nasal Cannula 2 05/10/23 16:17 36.8 C 87 16 142/78 H 94 Nasal Cannula 3 05/10/23 15:45 36.5 C 82 18 136/85 94 Nasal Cannula 2 05/10/23 15:15 36.7 C 84 18 147/88 H 93 Nasal Cannula 2 05/10/23 14:30 36.4 C L 80 19 144/88 H 93 Nasal Cannula 2 05/10/23 14:15 36.4 C L 78 17 156/87 H 95 Nasal Cannula 2 05/10/23 14:00 76 17 139/84 95 Nasal Cannula 2 05/10/23 13:50 73 17 133/91 95 Nasal Cannula 2 05/10/23 13:45 75 17 145/88 H 96 Nasal Cannula 2 05/10/23 13:40 73 18 150/90 H 96 Nasal Cannula 2 05/10/23 13:30 36.4 C L 78 18 155/93 H 96 Nasal Cannula 4 05/10/23 13:20 73 20 161/92 H 95 Nasal Cannula 4 05/10/23 13:10 78 19 168/108 H 95 Oxymask 5 05/10/23 13:00 76 20 163/91 H 97 Oxymask 5 05/10/23 12:50 70 17 159/100 H 95 Oxymask 5 05/10/23 12:43 36.3 C L 74 20 163/107 H 95 Oxymask 5 05/10/23 09:23 36.8 C 84 20 181/96 H 93 Room Air Laboratory Results BMP 05/10/23 19:46 Sodium 137 Potassium 4.2 Chloride 104 Carbon Dioxide 23 BUN 18 Creatinine 0.98 Glucose 234 H Calcium 8.6 Diagnostic Findings Shoulder X-Ray 05/10/23 12:43 RIGHT SHOULDER 2 VIEWS CLINICAL HISTORY: Postoperative examination. FINDINGS: 2 portable views of the right shoulder are compared to study dated 01/15/2023. The skeletal structures are osteopenic. A right shoulder arthroplasty is in near anatomic alignment. No acute fracture is seen. Productive degenerative change is noted at the acromioclavicular joint. Skin clips, subcutaneous gas, and soft tissue swelling overlying the right shoulder are expected postsurgical findings. The visualized right lung parenchyma appears clear noting platelike atelectasis. IMPRESSION: Expected postoperative findings status post right shoulder arthroplasty. No acute fracture is seen. Electronically signed by: Conor Herrmann M.D. 05/10/2023 1:33 PM
[2023-05-10] MEDS ORDERED: FUROSEMIDE 40 MG/4 ML VIAL IV ONE (19:19)
[2023-05-10 20:34] LABS: BUN Creatinine Ratio 18.4 (10-20); Calcium 8.6 mg/dl (8.6-10.3); Creatinine Clr Calc Pharmacy 71.4 ml/min; Est GFR (African American) 68.7 ml/min; Est GFR (Non-African American) 59.3 ml/min; Potassium 4.2 mmol/L (3.5-5.1)
[2023-05-10] MEDS: SENNA 8.6 MG TAB PO SCH (20:36)
[2023-05-10] MEDS: DOCUSATE SODIUM 100 MG CAP PO SCH (20:36)
[2023-05-10 20:41] LABS: Troponin I High Sensitivity 7.5 pg/ml (0-14)
[2023-05-10] MEDS ORDERED: NON-FORMULARY MEDICATION (Vit C,E-Zn-Coppr-Lutein-Zeaxan [Preservision Areds-2] 250-90-40- PO SCH (21:00)
[2023-05-10] MEDS: ACETAMINOPHEN 500 MG TAB PO SCH (22:33)
[2023-05-11] MEDS: oxyCODONE HCL IR 5 MG TAB (IMMEDIATE RELEASE) PO PRN ×3 (01:40→23:55)
[2023-05-11] MEDS: ceFAZolin 2000MG 2,000 MG/15 ML SYR IV SCH (01:51)
[2023-05-11] MEDS: ACETAMINOPHEN 500 MG TAB PO SCH ×3 (05:55→21:28)
[2023-05-11] MEDS ORDERED: dexAMETHasone 4 MG TAB PO SCH (08:00)
--- NOTE | 2023-05-11 08:16 | XRay Report ---
XR chest 1V portable CLINICAL HISTORY: Shortness of breath. COMPARISON STUDY: Chest radiograph April 02, 2023. FINDINGS: Recent right shoulder arthroplasty is partially imaged. There is also a left shoulder arthr oplasty. Mild to moderate elevation of the right hemidiaphragm has developed. Linear right lung opaci ties favor atelectasis. No consolidation is identified. No evidence for pulmonary edema. Cardiac size is within normal limits. IMPRESSION: 1. Interval development of mild to moderate elevation of the right hemidiaphragm. 2. Linear right lung opacities suggestive of atelectasis. 3. Recent right shoulder arthroplasty. ACT 112: Negative or not required by law. Electronically signed by: Francis Cash M.D. 05/11/2023 8:14 AM
[2023-05-11] MEDS: MULTIVITAMIN TAB PO SCH (08:23)
[2023-05-11] MEDS: DULoxetine HCL 20 MG CAP PO SCH (08:23)
[2023-05-11] MEDS: DOCUSATE SODIUM 100 MG CAP PO SCH ×2 (08:23→20:42)
[2023-05-11] MEDS: GABAPENTIN 100 MG CAP PO SCH ×3 (08:24→20:43)
--- NOTE | 2023-05-11 08:49 | Electrocardiogram Report ---
Test Reason : Blood Pressure : / mmHG Vent. Rate : 100 BPM Atrial Rate : 100 BPM P-R Int : 170 ms QRS Dur : 092 ms QT Int : 310 ms P-R-T Axes : 057 005 017 degrees QTc Int : 399 ms Poor data quality, interpretation may be adversely affected Normal sinus rhythm Diffuse Minor Nonspecific T wave abnormality Abnormal ECG When compared with ECG of 02-APR-2023 10:38, Nonspecific T wave abnormality now present Confirmed by Rodri Kraus ([id number]) on 05/11/2023 8:48:58 AM Referred By: Jose Pedroza Confirmed By:Rodri Kraus
[2023-05-11] MEDS ORDERED: FUROSEMIDE 20 MG TAB PO SCH (09:00)
--- NOTE | 2023-05-11 09:39 | Orthopedic Progress Note ---
Date of Service May 11, 2023 Assessment & Plan (1) Status post reverse total replacement of right shoulder: She is doing well with her shoulder but she is having trouble with her pulmonary function. I think the combination of the hemidiaphragm from the nerve block as well as some fluid overload. She was started on Lasix to help with the fluid. We will continue to monitor her her pulmonary function today. We will hold any discharge for today. We will see how she is doing tomorrow. Idalia Davis was seen and examined at bedside this morning. Unfortunately she still having trouble with her pulmonary function. She is currently on 4 L of oxygen b y nasal cannula. She was seen by the hospitalist yesterday. She has a little bit of a hemidiaphragm from the nerve block and she is dealing with some fluid overload. She was started on the Lasix. She still in trouble getting a deep breath. She is not having any pain in the shoulder. She has no other complaints.. Review of Systems All systems reviewed & are unremarkable except as noted in HPI & below. Physical Exam On physical examination of right shoulder, the dressing is clean and dry. She is wearing her sling as instructed. The nerve block is still in effect.. Results & Data Results & Data Laboratory Results . Diagnostic Findings Postoperative x-rays of the right shoulder show the prosthesis to be in anatomic alignment without any evidence of fracture, cage, or loosening. PG Care Time/CCT Total # of Minutes Spent Total Time Spent with Patient: Total time spent is greater than 50% in coordination of care (as documented) at patient's floor/unit and/or counseling patient: Coding Level of Care Code 09116 Post Operative Follow-Up Diagnoses Status post reverse total replacement of right shoulder Z96.611
[2023-05-11] MEDS ORDERED: FUROSEMIDE 40 MG/4 ML VIAL IV STA (12:19)
--- NOTE | 2023-05-11 13:23 | Hospitalist Progress Note ---
Date of Service May 11, 2023 Assessment & Plan (1) Acute postoperative respiratory insufficiency: Plan: Multifactorial-effect of medications especially anesthetics, history of diastolic heart failure and complicated by sleep apnea and obesity Management as below (2) Status post reverse total replacement of right shoulder: Plan: - Pain management, bowel regimen and DVT ppx per the primary team - PT/OT consults, pt is planning on outpatient therapy - Follow am CBC to monitor for acute blood loss, last Hgb was 15.6 on 04/02/23 -Management as per Ortho -We will get CBC tomorrow (3) Sleep apnea: (4) Chronic diastolic CHF (congestive heart failure): Plan: - Acute on chronic diastolic CHF and is complicated by fluid overload and anesthetic medication with decreasing respiratory effort - Pt is on 4 L via NC with sats 94%, does not normally require O2 during day, wears bipap HS - Last dose of lasix 20 mg po was on Saturday, will administer 40 mg IV lasix now, takes 20 mg po MWF normally - Place pur wick, strict I/Os -Condition has not improved and only has 572 of mL of fluid out and the patient remains short of breath at rest -IV fluid has been stopped -We will give more IV Lasix and monitor intake output -Reviewed EKG with diffuse nonspecific T wave changes without any elevation of troponin. Doubt any ACS - Has hx of allergies and asthma - pt feels only slightly improved with a breathing treatment -We will observe (5) History of anemia: Plan: - Cont MVI with iron (6) IBS (irritable bowel syndrome): Plan: - Last BM was this morning, continue stool softeners and miralax (7) Morbid obesity with BMI of 50.0-59.9, adult: Plan: BMI of 52.7, diet and exercise to be encouraged throughout hospital stay DVT PPx: - teds, scds CODE: Full code Dispo: From home, likely to remain in the hospital x 1-2 days Admission and Anticipated Discharge Date Admission Date: May 10, 2023 Subjective 05/11/2023 The patient was seen and examined in medical floor She is a status post right total shoulder arthroplasty on 05/10/2023 Besides pain in the right shoulder she complains to have shortness of breath following surgery and that has not improved so far Denies any chest pain or palpitation Does not have any fever and or chills and no nausea and or vomiting She has been requiring 4 L to maintain saturation Review of Systems Review of Systems: All systems reviewed and are unremarkable except as noted below Respiratory: Shortness of breath at rest Musculoskeletal: Right shoulder is in sling with increasing pain with movement Physical Exam Physical Exam: Lying in bed with moderate shortness of breath at rest Constitutional: well developed, well nourished, + ill appearing and + morbidly obese Eyes: PERRL, conjunctivae normal, anicteric sclerae ENMT: external ear and nose normal, oropharynx normal Neck: trachea midline, no thyromegaly Respiratory: + respiratory distress (Moderate distress at rest) Auscu ltation: + diminished lung sounds and + crackles (Bibasally) Cardiovascular: Rate/Rhythm: regular rate and regular rhythm; not tachycardic Heart Sounds: normal S1 and normal S2; no murmur Extremities: + edema (Trace edema bilaterally) Gastrointestinal (Abdomen): Inspection/Auscultation: normal bowel sounds; abdomen not distended Percussion/Palpation: abdomen soft; abdomen nontender Musculoskeletal: Right shoulder arthroplasty, right upper extremity is in sling Neurologic: Alert, awake and oriented x3. Generally weak without any focal neurodeficit Psychiatric: A+Ox3, euthymic affect Lymphatic: no cervical or axillary lymphadenopathy Results & Data Results & Data Vital Signs (Past 12 Hours) Vital Signs Temp Pulse Resp BP Pulse Ox O2 Del Method O2 Flow Rate 05/11/23 12:05 37.2 C 84 18 141/83 H 93 Nasal Cannula 4 05/11/23 08:30 Nasal Cannula 4 05/11/23 07:32 36.8 C 86 18 124/76 94 Nasal Cannula 4 05/11/23 04:04 36.9 C 89 18 117/74 93 Nasal Cannula [address] [facility] 05/10/23 19:46 Sodium 137 Potassium 4.2 Chloride 104 Carbon Dioxide 23 BUN 18 Creatinine 0.98 Glucose 234 H Calcium 8.6 Medications Administered Current Inpatient Medications Acetaminophen (Acetaminophen 500 Mg Tab) 1,000 mg PO Q8 ON LICENSE OF [facility] Stop: 06/09/23 21:59 Last Admin: 05/11/23 12:56 Dose: 1,000 mg Albuterol (Albuterol 0.083% Nebu Soln 3 Ml Vial) 2.5 mg INH Q4R PRN; Protocol PRN Reason: Shortness Of Breath Stop: 06/09/23 15:28 Last Admin: 05/10/23 16:55 Dose: 2.5 mg Albuterol (Albuterol Hfa 8 Gm Inhaler) 2 puffs INH Q6R PRN PRN Reason: Shortness Of Breath Stop: 06/09/23 15:28 Bisacodyl (Bisacodyl 10 Mg Supp) 10 mg [place] DAILY PRN PRN Reason: Constipation Stop: 06/09/23 15:28 Docusate Sodium (Docusate Sodium 100 Mg Cap) 100 mg PO BID ON LICENSE OF [facility] Stop: 06/09/23 20:59 Last Admin: 05/11/23 08:23 Dose: 100 mg Duloxetine HCl (Duloxetine Hcl 20 Mg Cap) 20 mg PO DAILY ON LICENSE OF [facility] Stop: 06/10/23 08:59 Last Admin: 05/11/23 08:23 Dose: 20 mg Fluticasone Furoate (Fluticasone Furoate 200mcg 14 Puffs/Inhaler) 1 puffs INH DAILY PRN PRN Reason: Shortness Of Breath Stop: 06/09/23 15:52 Furosemide (Furosemide 20 Mg Tab) 20 mg PO Q3D ON LICENSE OF [facility] Stop: 06/10/23 08:59 Last Admin: 05/11/23 08:23 Dose: 20 mg Gabapentin (Gabapentin 100 Mg Cap) 100 mg PO TID ON LICENSE OF [facility] Stop: 06/09/23 15:59 Last Admin: 05/11/23 12:56 Dose: 100 mg Hydromorphone HCl (Hydromorphone Inj 0.5 Mg/0.5 Ml Syr) 0.5 mg IV Q4H PRN PRN Reason: Pain or Pre PT Stop: 05/24/23 15:28 Magnesium Hydroxide (Magnesium Hydroxide Susp 30 Ml Udc) 30 ml PO Q6H PRN PRN Reason: Constipation Stop: 06/09/23 15:28 Metoclopramide HCl (Metoclopramide Hcl Inj 5 Mg/Ml 2 Ml Vial) 10 mg IV Q6H PRN PRN Reason: Nausea And Vomiting Stop: 06/09/23 15:28 Multivitamins (Multivitamin Tab) 1 tab PO QAM ON LICENSE OF [facility] Stop: 06/10/23 08:59 Last Admin: 05/11/23 08:23 Dose: 1 tab Naloxone HCl (Naloxone Hcl 0.4 Mg/1 Ml Vial/Carp) 0.1 mg IV Q5M PRN PRN Reason: Oversedation/Resp Depression Stop: 06/09/23 15:28 Ondansetron HCl (Ondansetron Inj 2 Mg/Ml 2 Ml Vial) 4 mg IV Q6H PRN PRN Reason: Nausea And Vomiting Stop: 06/09/23 15:28 Oxycodone HCl (Oxycodone Hcl Ir 5 Mg Tab (Immediate Release)) 5 - 10 mg PO Q4H PRN PRN Reason: Pain or Pre PT Stop: 05/24/23 15:28 Last Admin: 05/11/23 01:40 Dose: 10 mg Sennosides (Senna 8.6 Mg Tab) 17.2 mg PO HS [facility] Stop: 06/09/23 20:59 Last Admin: 05/10/23 20:36 Dose: 17.2 mg
[2023-05-11] MEDS ORDERED: FUROSEMIDE 40 MG/4 ML VIAL IV ONE (17:00)
[2023-05-11] MEDS: SENNA 8.6 MG TAB PO SCH (20:42)
[2023-05-12] MEDS: ACETAMINOPHEN 500 MG TAB PO SCH ×3 (05:47→21:53)
[2023-05-12 06:04] LABS: Basophils # (auto) 0.03 K/uL (0-0.2); Basophils % (auto) 0.2 %; Hematocrit (blood only) 41.7 % (37.0-47.0); Hemoglobin 13.9 g/dl (12.0-16.0); Immature Granulocytes # (auto) 0.06 K/uL (0.01-0.20); Immature Granulocytes % (auto) 0.5 %; Mean Corpuscular Hemoglobin 30.7 pg (25.0-34.0); Mean Corpuscular Hgb Conc 33.3 g/dL (32.0-36.0); Mean Corpuscular Volume 92.1 fL (80.0-100.0); Mean Platelet Volume 8.8 fL (9.4-12.4); Monocytes # (auto) 1.05 K/uL (0.11-0.59); Monocytes % (auto) 8.2 %; Neutrophils # (auto) 9.32 K/uL (1.40-6.50); Neutrophils % (auto) 73.1 %; Platelet Count 250 K/uL (130-400); RDW Standard Deviation 47.7 fL (36.4-46.3); Red Blood Count 4.53 M/uL (4.20-5.40); White Blood Count 12.76 K/ul (4.8-10.8)
[2023-05-12 06:28] LABS: BUN Creatinine Ratio 46.6 (10-20); Calcium 8.7 mg/dl (8.6-10.3); Creatinine Clr Calc Pharmacy 120.6 ml/min; Est GFR (African American) 109.8 ml/min; Est GFR (Non-African American) 94.7 ml/min; Magnesium 2.2 mg/dl (1.7-2.4); Phosphorus 2.7 mg/dl (2.5-4.9); Potassium 3.9 mmol/L (3.5-5.1)
[2023-05-12] MEDS: DOCUSATE SODIUM 100 MG CAP PO SCH ×2 (08:10→20:05)
[2023-05-12] MEDS: DULoxetine HCL 20 MG CAP PO SCH (08:11)
[2023-05-12] MEDS: GABAPENTIN 100 MG CAP PO SCH ×3 (08:11→20:03)
[2023-05-12] MEDS: MULTIVITAMIN TAB PO SCH (08:23)
--- NOTE | 2023-05-12 09:20 | Orthopedic Progress Note ---
Date of Service May 12, 2023 Assessment & Plan (1) Status post reverse total replacement of right shoulder: With regards to the right shoulder, she is doing fairly well. With regards to her postoperative hypoxia, she is still requiring 4 L of oxygen by nasal cannula. The hospitalist is working at decreasing the hypoxia. She is receiving IV Lasix. She is using the incentive spirometer. Hopefully, the nursing staff can try to wean her off her oxygen a little bit today. It seems the nerve block is worn off and she is now able to take a deep breath. She is orthopedically stable for discharge when medically ready. If she does very well today she can still be discharged home, however, I am anticipating her still being here tomorrow. We will see how she does throughout the day today. Idalia Davis was seen and examined at bedside this morning. Overall she is slightly improved. She can take a deep breath now. Nerve block is wearing off. She received 2 doses of IV Lasix yesterday. She says that she has been voiding a lot. She is still requiring oxygen. She has no new complaints.. Review of Systems All systems reviewed & are unremarkable except as noted in HPI & below. Physical Exam On physical examination of the right shoulder, she has active motion of her hand and wrist. She is wearing a sling as instructed. The dressing is clean and dry.. Results & Data Results & Data Laboratory Results . Diagnostic Findings . PG Care Time/CCT Total # of Minutes Spent Total Time Spent with Patient: Total time spent is greater than 50% in coordination of care (as documented) at patient's floor/unit and/or counseling patient: Coding Level of Care Code 08084 Post Operative Follow-Up Diagnoses Status post reverse total replacement of right shoulder Z96.611
[2023-05-12] MEDS: oxyCODONE HCL IR 5 MG TAB (IMMEDIATE RELEASE) PO PRN ×2 (10:41→20:03)
--- NOTE | 2023-05-12 14:57 | Hospitalist Progress Note ---
Date of Service May 12, 2023 Assessment & Plan (1) Acute postoperative respiratory insufficiency: Plan: Multifactorial-effect of medications especially anesthetics, history of diastolic heart failure and complicated by sleep apnea and obesity Management as below (2) Status post reverse total replacement of right shoulder: Plan: - Pain management, bowel regimen and DVT ppx per the primary team - PT/OT consults, pt is planning on outpatient therapy - Follow am CBC to monitor for acute blood loss, last Hgb was 15.6 on 04/02/23 -Management as per Ortho -We will get CBC tomorrow (3) Sleep apnea: (4) Chronic diastolic CHF (congestive heart failure): Plan: - Acute on chronic diastolic CHF and is complicated by fluid overload and anesthetic medication with decreasing respiratory effort - Pt is on 4 L via NC with sats 94%, does not normally require O2 during day, wears bipap HS - Last dose of lasix 20 mg po was on Saturday, will administer 40 mg IV lasix now, takes 20 mg po MWF normally - Place pur wick, strict I/Os -Condition has not improved and only has 572 of mL of fluid out and the patient remains short of breath at rest -IV fluid has been stopped -We will give more IV Lasix and monitor intake output -Reviewed EKG with diffuse nonspecific T wave changes without any elevation of troponin. Doubt any ACS - Has hx of allergies and asthma - pt feels only slightly improved with a breathing treatment -Remains shortness of breath at rest and has been requiring about 4 L to maintain saturation -We will give another dose of intravenous Lasix today and get chest x-ray tomorrow -She has been getting physical therapy and will needed to a step O2 saturation test prior to discharge tomorrow (5) History of anemia: Plan: - Cont MVI with iron (6) IBS (irritable bowel syndrome): Plan: - Last BM was this morning, continue stool softeners and miralax (7) Morbid obesity with BMI of 50.0-59.9, adult: Plan: BMI of 52.7, diet and exercise to be encouraged throughout hospital stay DVT PPx: - teds, scds CODE: Full code Dispo: From home, likely to remain in the hospital x 1-2 days Likely discharge tomorrow Admission and Anticipated Discharge Date Admission Date: May 12, 2023 Subjective 05/11/2023 The patient was seen and examined in medical floor She is a status post right total shoulder arthroplasty on 05/10/2023 Besides pain in the right shoulder she complains to have shortness of breath following surgery and that has not improved so far Denies any chest pain or palpitation Does not have any fever and or chills and no nausea and or vomiting She has been requiring 4 L to maintain saturation 05/12/2023 The patient was seen and examined in medical floor Still remains short of breath and has been requiring 4 L of oxygen to maintain saturation She has a history of allergic bronchospasm and requires inhalers as needed She has been getting physical therapy and remains otherwise stable Review of Systems Review of Systems: All systems reviewed and are unremarkable except as noted below Physical Exam Physical Exam: Lying in bed with moderate shortness of breath at rest Constitutional: well developed, well nourished, + ill appearing and + morbidly obese Eyes: PERRL, conjunctivae normal, anicteric sclerae ENMT: external ear and nose normal, oropharynx normal Neck: trachea midline, no thyromegaly Respiratory: + respiratory distress (Moderate distress at rest) Auscultation: + diminished lung sounds and + crackles (Bibasally) Cardiovascular: Rate/Rhythm: regular rate and regular rhythm; not tachycardic Heart Sounds: normal S1 and normal S2; no murmur Extremities: + edema (Trace edema bilaterally) Gastrointestinal (Abdomen): Inspection/Auscultation: normal bowel sounds; abdomen not distended Percussion/Palpation: abdomen soft; abdomen nontender Musculoskeletal: Right shoulder arthroplasty, right upper extremity is in sling Neurologic: Alert, awake and oriented x3. Generally weak without any focal neurodeficit Psychiatric: A+Ox3, euthymic affect Lymphatic: no cervical or axillary lymphadenopathy Results & Data Results & Data Vital Signs (Past 12 Hours) Vital Signs Temp Pulse Resp BP Pulse Ox O2 Del Method O2 Flow Rate 05/12/23 07:56 Nasal Cannula 4 05/12/23 07:36 36.7 C 80 16 125/79 94 Nasal Cannula 4 Laboratory Results Short CBC 05/12/23 Range/Units 05:51 WBC 12.76 H (4.8-10.8) K/ul Hgb 13.9 (12.0-16.0) g/dl Hct 41.7 (37.0-47.0) % Plt Count 250 (130-400) K/uL BMP 05/12/23 05:51 Sodium 141 Potassium 3.9 Chloride 103 Carbon Dioxide 32 BUN 27 H Creatinine 0.58 L D Glucose 118 H Calcium 8.7 Medications Administered Current Inpatient Medications Acetaminophen (Acetaminophen 500 Mg Tab) 1,000 mg PO Q8 [facility] Stop: 06/09/23 21:59 Last Admin: 05/12/23 13:51 Dose: 1,000 mg Albuterol (Albuterol 0.083% Nebu Soln 3 Ml Vial) 2.5 mg INH Q4R PRN; Protocol PRN Reason: Shortness Of Breath Stop: 06/09/23 15:28 Last Admin: 05/10/23 16:55 Dose: 2.5 mg Albuterol (Albuterol Hfa 8 Gm Inhaler) 2 puffs INH Q6R PRN PRN Reason: Shortness Of Breath Stop: 06/09/23 15:28 Bisacodyl (Bisacodyl 10 Mg Supp) 10 mg [place] DAILY PRN PRN Reason: Constipation Stop: 06/09/23 15:28 Docusate Sodium (Docusate Sodium 100 Mg Cap) 100 mg PO BID [facility] Stop: 06/09/23 20:59 Last Admin: 05/12/23 08:10 Dose: Not Given Duloxetine HCl (Duloxetine Hcl 20 Mg Cap) 20 mg PO DAILY [facility] Stop: 06/10/23 08:59 Last Admin: 05/12/23 08:11 Dose: 20 mg Fluticasone Furoate (Fluticasone Furoate 200mcg 14 Puffs/Inhaler) 1 puffs INH DAILY PRN PRN Reason: Shortness Of Breath Stop: 06/09/23 15:52 Furosemide (Furosemide 20 Mg Tab) 20 mg PO Q3D [facility] Stop: 06/10/23 08:59 Last Admin: 05/11/23 08:23 Dose: 20 mg Gabapentin (Gabapentin 100 Mg Cap) 100 mg PO TID [facility] Stop: 06/09/23 15:59 Last Admin: 05/12/23 13:53 Dose: 100 mg Hydromorphone HCl (Hydromorphone Inj 0.5 Mg/0.5 Ml Syr) 0.5 mg IV Q4H PRN PRN Reason: Pain or Pre PT Stop: 05/24/23 15:28 Magnesium Hydroxide (Magnesium Hydroxide Susp 30 Ml Udc) 30 ml PO Q6H PRN PRN Reason: Constipation Stop: 06/09/23 15:28 Metoclopramide HCl (Metoclopramide Hcl Inj 5 Mg/Ml 2 Ml Vial) 10 mg IV Q6H PRN PRN Reason: Nausea And Vomiting Stop: 06/09/23 15:28 Multivitamins (Multivitamin Tab) 1 tab PO QAM [facility] Stop: 06/10/23 08:59 Last Admin: 05/12/23 08:23 Dose: 1 tab Naloxone HCl (Naloxone Hcl 0.4 Mg/1 Ml Vial/Carp) 0.1 mg IV Q5M PRN PRN Reason: Oversedation/Resp Depression Stop: 06/09/23 15:28 Ondansetron HCl (Ondansetron Inj 2 Mg/Ml 2 Ml Vial) 4 mg IV Q6H PRN PRN Reason: Nausea And Vomiting Stop: 06/09/23 15:28 Oxycodone HCl (Oxycodone Hcl Ir 5 Mg Tab (Immediate Release)) 5 - 10 mg PO Q4H PRN PRN Reason: Pain or Pre PT Stop: 05/24/23 15:28 Last Admin: 05/12/23 10:41 Dose: 5 mg Sennosides (Senna 8.6 Mg Tab) 17.2 mg PO HS [facility] Stop: 06/09/23 20:59 Last Admin: 05/11/23 20:42 Dose: Not Given
[2023-05-12] MEDS: FUROSEMIDE 40 MG/4 ML VIAL IV ONE ×2 (15:15→16:10)
[2023-05-12] MEDS: SENNA 8.6 MG TAB PO SCH (20:06)
[2023-05-13] MEDS: oxyCODONE HCL IR 5 MG TAB (IMMEDIATE RELEASE) PO PRN ×4 (02:50→19:53)
[2023-05-13] MEDS: ACETAMINOPHEN 500 MG TAB PO SCH ×3 (05:48→21:36)
[2023-05-13] MEDS: DOCUSATE SODIUM 100 MG CAP PO SCH ×2 (07:35→19:56)
[2023-05-13] MEDS: MULTIVITAMIN TAB PO SCH (07:39)
[2023-05-13] MEDS: DULoxetine HCL 20 MG CAP PO SCH (07:39)
[2023-05-13] MEDS: GABAPENTIN 100 MG CAP PO SCH ×3 (07:39→19:53)
[2023-05-13 07:55] LABS: BUN Creatinine Ratio 42.6 (10-20); Calcium 8.5 mg/dl (8.6-10.3); Creatinine Clr Calc Pharmacy 129.5 ml/min; Est GFR (African American) 112.4 ml/min; Potassium 3.8 mmol/L (3.5-5.1)
--- NOTE | 2023-05-13 10:53 | XRay Report ---
XR chest 1V portable HISTORY: hypoxia COMPARISON: Chest 05/10/2023. FINDINGS: No pneumothorax. No pleural effusions. There is a linear density within the left midlung zo ne suggesting subsegmental atelectasis. Otherwise, the lungs are clear. The heart remains mildly enla rged. Stable mild elevation of the right hemidiaphragm. Bilateral total shoulder arthroplasties are a gain noted. There are skin jose j overlying the right shoulder. IMPRESSION: No significant change compared to the prior study. No acute process. ACT 112: Negative or not required by law. Electronically signed by: Lemuel Griffiths M.D. 05/13/2023 10:51 AM
[2023-05-13] MEDS ORDERED: IOVERSOL 350 MG 125mL Prefilled Syringe IV ONE (13:19)
--- NOTE | 2023-05-13 13:27 | Orthopedic Progress Note ---
Date of Service May 13, 2023 Assessment & Plan (1) Status post reverse total replacement of right shoulder: Overall she is improving some. She is still having hypoxia with exertion. We will see what the CTA shows today. She should be seen by the hospitalist later today. She will be orthopedically stable for discharge when medically ready. At this point I think she will likely be discharged home tomorrow. We will see how she does. Idalia Davis was seen and examined at bedside this morning. Overall she is doing a little bit better. Her oxygen saturations are better when she is not being active, however, soon as she starts to do any type of exertion her saturations fall. She is scheduled to get a CTA of her chest today to rule out any pulmonary embolism. Her shoulder is doing fairly well she has no complaints from that.. Review of Systems All systems reviewed & are unremarkable except as noted in HPI & below. Physical Exam On physical examination of the right shoulder, the dressing is clean and dry. She is wearing her sling as instructed.. Results & Data Results & Data Laboratory Results . Diagnostic Findings . PG Care Time/CCT Total # of Minutes Spent Total Time Spent with Patient: Total time spent is greater than 50% in coordination of care (as documented) at patient's floor/unit and/or counseling patient: Coding Level of Care Code 23933 Post Operative Follow-Up Diagnoses Status post reverse total replacement of right shoulder Z96.611
--- NOTE | 2023-05-13 13:54 | CT Scan Report ---
CT ANGIOGRAPHY OF THE CHEST, PULMONARY EMBOLUS PROTOCOL CLINICAL HISTORY: Hypoxia. Evaluate for pulmonary embolus. COMPARISON STUDY: Chest radiograph May 13, 2023. TECHNIQUE: Following IV administration of 118 mL of Optiray, helical axial images of the chest were o btained utilizing the pulmonary embolus protocol. Maximal intensity projections and sagittal and cor onal reformats were viewed on an independent 3D workstation. IV contrast was administered without co mplication. Automated exposure control was utilized for the study. A dose lowering technique was ut ilized adhering to the principles of ALARA. CT DOSE: 1070.49 mGy.cm FINDINGS: No pulmonary emboli are identified. There is mild cardiomegaly. No pericardial effusion is present. There is no pneumothorax or pleural effusion. There is no consolidation to suggest pneumoni a. Mild to moderate elevation of the right hemidiaphragm remains unchanged. Subpleural right lung opa [place] represents atelectasis. There is subsegmental left lower lobe atelectasis. Recent total right sh oulder arthroplasty is partially imaged. Evaluation of the adjacent soft tissues is suboptimal given streak artifact from the hardware. IMPRESSION: 1. No pulmonary emboli identified. 2. No change in mild to moderate elevation of the right hemidiaphragm since prior chest radiograph. S ubpleural right lung opacity consistent with atelectasis. ACT 112: Negative or not required by law. Electronically signed by: Francis Cash M.D. 05/13/2023 1:53 PM
[2023-05-13] MEDS: FUROSEMIDE 20 MG TAB PO SCH (15:39)
--- NOTE | 2023-05-13 16:00 | Hospitalist Progress Note ---
Date of Service May 13, 2023 Assessment & Plan (1) Acute postoperative respiratory insufficiency: Plan: Multifactorial-effect of medications especially anesthetics, pain medications, history of diastolic heart failure and complicated by sleep apnea and obesity CTA chest negative for PE Two-step O2 eval completed today, patient requires 2 L of oxygen with activity Incentive spirometer encouraged Management as below (2) Acute on chronic diastolic CHF (congestive heart failure): Plan: Patient required 4L O2 at one point. 2 step O2 eval completed today -- requires 2L O2 w/ activity Typically managed with Lasix 20 mg PO MWF Received Lasix 40 mg IV daily x 3 days (05/10-05/12) CXR improved today Increase home dose Lasix to 20 mg PO daily Outpatient follow-up with PCP and will need BMP checked (3) Sleep apnea: Plan: Typically managed on BiPAP however has been declining use while in the hospital Patient states that she has been told that she needs oxygen with BiPAP however has had difficulty scheduling repeat sleep study and office visit -- message sent to sleep medicine office to help arrange. (4) Status post reverse total replacement of right shoulder: Plan: POD#[address] Pedroza Activity and wound care orders as per ortho Pain control with bowel regimen PT/OT Monitor H/H for acute blood loss anemia and transfuse blood products PRN EBL 250cc Hgb stable 13.9 on 05/12 (5) History of anemia: Plan: Cont MVI with iron Hgb 13.9 on 05/12 (6) IBS (irritable bowel syndrome): Plan: No acute issues (7) Morbid obesity with BMI of 50.0-59.9, adult: Plan: BMI of 52.7, diet and exercise to be encouraged throughout hospital stay DVT PROPHYLAXIS Teds/SCDs as per Ortho Patient seen in collaboration with Dr. Thomas. Thank you for this consultation. We will follow the patient with you during their hospital stay. You can reach a member of the [facility] Hospitalist Team 13/05 via the [facility] Hospitalist role in [place] Text. Admission and Anticipated Discharge Date Admission Date: May 12, 2023 Supervising Physician Co-Signing Physician Notes Attending addendum The patient was seen and examined did not medical floor She has been feeling much better She underwent CTA without any evidence of pulmonary embolism On examination No apparent distress at rest Remains hemodynamically stable Has been requiring 2 L to maintain saturation For imaging studies, medications and labs reviewed Postop respiratory insufficiency likely complicated by fluid overload Agree with assessment and plan as outlined above by Silva thomas Subjective Follow-up for medical management, s/p right TSA by Dr. Pedroza. Patient seen and examined. Sitting up in the chair at the bedside. Reports shortness of breath is improving. Completed two-step O2 eval, requires 2 L of oxygen with activity. Denies chest pain. Right shoulder pain controlled. Denies abdominal pain and nausea. + flatus and BM. Review of Systems Review of Systems: ROS per HPI, all other systems reviewed and negative Physical Exam Constitutional: WD/WN, vitals as above + obese; no acute distress Respiratory: normal respiratory effort; no respiratory distress Auscultation: + diminished lung sounds Cardiovascular: Rate/Rhythm: regular rate and regular rhythm Vessels: normal peripheral pulses Extremities: no edema Gastrointestinal (Abdomen): normal bowel sounds, soft, nontender, no hepatosplenomegaly Musculoskeletal: S/p right shoulder surgery, dressing CDI, CSM checks intact RUE Skin: no rashes, warm and dry Neurologic: no focal motor deficits Psychiatric: A+Ox3, euthymic affect Results & Data Results & Data Vital Signs (Past 12 Hours) Vital Signs Temp Pulse Pulse Pulse Pulse Resp Resp 05/13/23 14:49 36.6 C 86 16 05/13/23 09:36 110 H 118 H 87 26 H 05/13/23 08:15 05/13/23 07:36 36.4 C L 75 20 Resp Resp BP Pulse Ox Pulse Ox Pulse Ox Pulse Ox 05/13/23 14:49 129/81 93 05/13/23 09:36 26 H 18 90 86 L 89 L 05/13/23 08:15 05/13/23 07:36 123/76 93 O2 Del Method O2 Flow Rate O2 Flow Rate 05/13/23 14:49 Nasal Cannula 2 05/13/23 09:36 2 05/13/23 08:15 Room Air, Nasal Cannula 05/13/23 07:36 Room Air Laboratory Results BMP 05/13/23 07:16 Sodium 140 Potassium 3.8 Chloride 101 Carbon Dioxide 35 H BUN 23 Creatinine 0.54 L Glucose 108 H Calcium 8.5 L Diagnostic Findings Chest X-Ray 05/13/23 10:22 XR chest 1V portable HISTORY: hypoxia COMPARISON: Chest 05/10/2023. FINDINGS: No pneumothorax. No pleural effusions. There is a linear density within the left midlung zone suggesting subsegmental atelectasis. Otherwise, the lungs are clear. The heart remains mildly enlarged. Stable mild elevation of the right hemidiaphragm. Bilateral total shoulder arthroplasties are again noted. There are skin jose j overlying the right shoulder. IMPRESSION: No significant change compared to the prior study. No acute process. ACT 112: Negative or not required by law. Electronically signed by: Lemuel Griffiths M.D. 05/13/2023 10:51 AM Chest CTA 05/13/23 11:51 CT ANGIOGRAPHY OF THE CHEST, PULMONARY EMBOLUS PROTOCOL CLINICAL HISTORY: Hypoxia. Evaluate for pulmonary embolus. COMPARISON STUDY: Chest radiograph May 13, 2023. TECHNIQUE: Following IV administration of 118 mL of Optiray, helical axial images of the chest were obtained utilizing the pulmonary embolus protocol. Maximal intensity projections and sagittal and coronal reformats were viewed on an independent 3D workstation. IV contrast was administered without complication. Automated exposure control was utilized for the study. A dose lowering technique was utilized adhering to the principles of ALARA. CT DOSE: 1070.49 mGy.cm FINDINGS: No pulmonary emboli are identified. There is mild cardiomegaly. No pericardial effusion is present. There is no pneumothorax or pleural effusion. There is no consolidation to suggest pneumonia. Mild to moderate elevation of the right hemidiaphragm remains unchanged. Subpleural right lung opa[place] represents atelectasis. There is subsegmental left lower lobe atelectasis. Recen t total right shoulder arthroplasty is partially imaged. Evaluation of the adjacent soft tissues is suboptimal given streak artifact from the hardware. IMPRESSION: 1. No pulmonary emboli identified. 2. No change in mild to moderate elevation of the right hemidiaphragm since prior chest radiograph. Subpleural right lung opacity consistent with atelectasis. ACT 112: Negative or not required by law. Electronically signed by: Francis Cash M.D. 05/13/2023 1:53 PM
[2023-05-13] MEDS: SENNA 8.6 MG TAB PO SCH (19:56)
[2023-05-14] MEDS: oxyCODONE HCL IR 5 MG TAB (IMMEDIATE RELEASE) PO PRN ×2 (02:54→11:10)
[2023-05-14] MEDS: ACETAMINOPHEN 500 MG TAB PO SCH (06:14)
[2023-05-14 07:01] LABS: Hematocrit (blood only) 40.8 % (37.0-47.0); Hemoglobin 13.7 g/dl (12.0-16.0); Mean Corpuscular Hgb Conc 33.6 g/dL (32.0-36.0); Mean Corpuscular Volume 92.3 fL (80.0-100.0); Platelet Count 252 K/uL (130-400); RDW Coefficient of Variation 13.8 % (11.5-14.5); RDW Standard Deviation 47.1 fL (36.4-46.3); Red Blood Count 4.42 M/uL (4.20-5.40); White Blood Count 8.96 K/ul (4.8-10.8)
--- NOTE | 2023-05-14 07:25 | Orthopedic Progress Note ---
Date of Service May 14, 2023 Assessment & Plan (1) Status post reverse total replacement of right shoulder: With regards to her right shoulder she is doing fairly well. She is not having too much pain. With regards to her lungs, she seems to be improving. The most recent checks x-ray looked improved. CT scan was negative. She is requiring 2 L of nasal cannula to keep her oxygen saturations at 96%. She is orthopedically stable for discharge today if okay with the hospitalist. She can follow-up with orthopedics in 2 weeks. Idalia Lobato was seen and examined at bedside this morning. Overall she is doing better. She had a CT scan of her lungs yesterday showing no evidence of a PE. She had a two-step oxygen test yesterday as well which showed she requires 2 L by nasal cannula at exertion. Her shoulder is doing well. She has no other co mplaints. Review of Systems All systems reviewed & are unremarkable except as noted in HPI & below. Physical Exam On physical examination of the right shoulder, the dressing is clean and dry. She is wearing her sling as instructed.. Results & Data Results & Data Laboratory Results . Diagnostic Findings . PG Care Time/CCT Total # of Minutes Spent Total Time Spent with Patient: Total time spent is greater than 50% in coordination of care (as documented) at patient's floor/unit and/or counseling patient: Coding Level of Care Code 50513 Post Operative Follow-Up Diagnoses Status post reverse total replacement of right shoulder Z96.611
--- NOTE | 2023-05-14 07:27 | Discharge Summary ---
Date of Service May 14, 2023 Admission HPI (Per Admitting) Susan is a pleasant 67-year-old female who has been dealing with chronic increasing right shoulder pain. I did a right shoulder arthroscopy and rotator cuff repair on her in 2014. She then underwent a left reverse shoulder arthroplasty in 2016. She has done well with that. Her shoulder has been bothering her more and more. X-rays show signs of severe cuff tear arthropathy of the right shoulder. After failing conservative treatment, she has elected to proceed with a right reverse shoulder arthroplasty. . Admission Exam (Per Admitting) On physical examination of right shoulder, she has decreased range of motion. She has pain with range of motion and crepitus.. Principal Diagnosis Same as "Discharge Diagnosis" noted below under Discharge Instructions. Discharge Exam On physical examination of the right shoulder, the dressing is clean and dry. She is wearing her sling as instructed.. Discharge Data Consultations 05/10/23 18:29 Consult Hospitalist Routine Procedures Performed Operation Date: 05/10/23 11:00 Actual Procedures p Right Total Shoulder Arthroplasty Reverse(Right) - Jose Pedroza DO Ordered Studies 05/10/23 05:00 US - OR guided needle placemen Routine 05/13/23 11:51 CT angio chest PE protocol Urgent Hospital Course (1) Status post reverse total replacement of right shoulder: On May 10, 2023 Susan arrived at [facility] and underwent a right reverse shoulder arthroplasty without complications. She had a general anesthetic and a right interscalene nerve block. Postoperatively she was placed in a sling and transferred to the general orthopedic floors. Postoperatively her shoulder did fine, however her hospital course was complicated by postoperative hypoxia. This was determined to be multifactorial. She had a depressed diaphragm from the nerve block as well as being fluid overloaded and having diastolic congestive heart failure. She was seen by the hospitalist. She was given IV Lasix which improved some of her fluid overload status. She continued to require oxygen on exertion. Over the course of her stay, her chest x-ray is improved. She did have a CT scan which was negative for DVT. She had a two-step evaluation for her lungs and was determined that she needed 2 L nasal cannula to keep her oxygen saturations around 96%. After the hospitalist determined that her pulmonary status was safe for discharge, she was discharged home on oral pain medications and full orthopedic discharge instructions. She will follow-up with orthopedics in 2 weeks. PG Care Time/CCT Total # of Minutes Spent Total Time Spent with Patient: Total time spent is greater than 50% in coordination of care (as documented) at patient's floor/unit and/or counseling patient: Discharge Plan Discharge Items Patient Disposition: Home - Home Health Services Reason For Visit: DJD Right Shoulder Discharge Diagnosis: Right reverse shoulder replacement Activity: Per Instructions section Non-emergency contact: Surgeon Call non-emergency contact if: your wound has increased redness and your wound has increased drainage Follow-up/Referrals: Tena Cifuentes [Physician] - ([facility] have been updated with your discharge status. Alejandra from sleep medicine scheduling will call you to set up an appointment.) Tee Bridges MD [Primary Care Provider] - (Date & Time 05/17/2023 10:40 AM Provider Tee Bridges MD Department [facility] ) Diet: Regular Addtl Attending Provider Instructions: Activity and Therapy Recommendations: * If you are using [facility] then therapy will be provided at your home until they feel you have accomplished all of your goals. * If you are using [facility] then Physical Therapy will be provided until they feel you are ready to start Outpatient Physical Therapy. * If you are not using home therapy then Outpatient Physical Therapy should start about 3-5 days from your day of surgery. Therapy will last about 8-12 weeks * Wear your sling for 3 weeks, unless otherwise instructed. You may remove your sling to shower and to dress, but otherwise, you should be in your sling at all times, including while sleeping * The shoulder replacement is very stable and you can use your hand while in the sling * You were shown a series of exercises in the hospital. Do these exercises daily including the exercises you were shown in physical therapy. Medications: * Narcotic You will likely be sent home from the hospital with a prescription for the narcotic pain medication that worked best throughout your stay. * Other medications may be prescribed for specific circumstances. If you have any questions, please call the office at . * Resume previous home medications unless otherwise instructed Dressing Care: Leave the Silverlon dressing in place for 7 days. After 7 days you may remove the dressing. If the incision is not draining then you may leave the jose j open to air. If there is a little bit of drainage or if the jose j are getting stuck on your clothing then cover the incision with a dry dressing. The jose j will be removed at your 2 week follow-up appointment. Showering: You may shower with the Silverlon dressing in place. Do not let the shower spray hit the dressing directly. Pat the Silverlon dressing dry. If the dressing becomes wet underneath, then simply remove the dressing. Keep the incision dry until you are 7 days out from the day of surgery. After 7 days you may remove the Silverlon dressing and shower with the jose j exposed. Let soapy water run over the jose j and pat them dry. Do not scrub or soak the incision. Things To Watch For: * Drainage from the incision site that occurs more than one week after your surgery. * Increased redness at the incision site. * Fever above 102 degrees Fahrenheit. * Unusual chest pain or shortness of breath. * Call [facility] at with any of the above problems Follow-Up Visit: Follow-up with Dr. Pedroza's PA (Jose Bullard) 2-3 weeks after your day of surgery. He will remove your jose j and answer any questions. If you have any additional questions or concerns, Dr Pedroza is usually in the office at the same time and will be available An appointment was probably scheduled when you signed-up for surgery in the office. If you have any questions call More detailed instructions as well as Frequently Asked Questions were provided in a folder by our office when you signed-up for surgery. Please review these instructions when you get home. If you have any further questions or concerns, please feel free to call the office at [phone] Pending Studies at Discharge: No Stand-Alone Forms: My [facility] Medications and DC Order Prescriptions: New oxycodone 5 mg Tablet 5 mg PO Q4H PRN (Reason: pain) Qty: 30 0RF Continued albuterol sulfate 2.5 mg /3 mL (0.083 %) Solution For Nebulization 2.5 mg INHALATION Q4H PRN (Reason: Shortness Of Breath) prednisone 20 mg Tablet 20 mg PO DAILY PRN (Reason: asthma rescue kit) diclofenac sodium 75 mg Tablet,Delayed Release (Dr/Ec) 75 mg PO BID fluticasone propionate [Flovent HFA] 220 mcg/actuation Hfa Aerosol Inhaler 2 puff INHALATION BID PRN (Reason: Shortness Of Breath) furosemide 20 mg Tablet 20 mg PO UD Patient Comments: takes on Rx Instructions: Takes MWF gabapentin 100 mg Capsule 100 mg PO TID albuterol sulfate [ProAir HFA] 90 mcg/actuation Hfa Aerosol Inhaler 2 puff INHALATION Q6H PRN (Reason: Shortness Of Breath) PreserVision AREDS-2 250-90-40-1 mg Capsule 1 tab PO BID Centrum 18-400 mg-mcg Tablet 1 tab PO HS duloxetine 30 mg capsule,delayed release(DR/EC) 30 mg PO DAILY Discharge Orders: Discharge Order (Routine); Ordered 05/14/23 Ordered By: Jose Pedroza Admission Data Admit Date/Time: 05/12/23 09:16 Attending Provider: Jose Pedroza Admit Provider: Jose Pedroza Primary Care Provider: Tee Bridges Other Providers: Diego Krishnamurthy ; Judi Morales
[2023-05-14 07:28] LABS: BUN Creatinine Ratio 43.1 (10-20); Calcium 8.6 mg/dl (8.6-10.3); Creatinine Clr Calc Pharmacy 137.2 ml/min; Est GFR (African American) 114.5 ml/min; Est GFR (Non-African American) 98.8 ml/min; Magnesium 2.2 mg/dl (1.7-2.4); Potassium 3.8 mmol/L (3.5-5.1)
[2023-05-14] MEDS: DOCUSATE SODIUM 100 MG CAP PO SCH (08:07)
[2023-05-14] MEDS: DULoxetine HCL 20 MG CAP PO SCH (08:07)
[2023-05-14] MEDS: FUROSEMIDE 20 MG TAB PO SCH (08:08)
[2023-05-14] MEDS: MULTIVITAMIN TAB PO SCH (08:08)
[2023-05-14] MEDS: GABAPENTIN 100 MG CAP PO SCH (08:08)
--- NOTE | 2023-05-14 16:02 | Hospitalist Progress Note ---
Date of Service May 14, 2023 Assessment & Plan (1) Acute postoperative respiratory insufficiency: Plan: Multifactorial-effect of medications especially anesthetics, pain medications, history of diastolic heart failure and complicated by sleep apnea and obesity CTA chest negative for PE Two-step O2 eval completed today, patient requires 2 L of oxygen with activity Incentive spirometer encouraged Management as below (2) Acute on chronic diastolic CHF (congestive heart failure): Plan: Patient required 4L O2 at one point. 2 step O2 eval completed -- requires 2L O2 w/ activity Typically managed with Lasix 20 mg PO MWF Received Lasix 40 mg IV daily x 3 days (05/10-05/12) CXR improved today Increase home dose Lasix to 20 mg PO daily Outpatient follow-up with PCP and will need BMP checked (3) Sleep apnea: Plan: Typically managed on BiPAP however has been declining use while in the hospital Patient states that she has been told that she needs oxygen with BiPAP however has had difficulty scheduling repeat sleep study and office visit -- message sent to sleep medicine office to help arrange. (4) Status post reverse total replacement of right shoulder: Plan: POD#[address] Pedroza Activity and wound care orders as per ortho Pain control with bowel regimen PT/OT Monitor H/H for acute blood loss anemia and transfuse blood products PRN EBL 250cc Hgb stable 13.7 (5) History of anemia: Plan: Cont MVI with iron Hgb 13.7 (6) IBS (irritable bowel syndrome): Plan: No acute issues (7) Morbid obesity with BMI of 50.0-59.9, adult: Plan: BMI of 52.7, diet and exercise to be encouraged throughout hospital stay DVT PROPHYLAXIS Teds/SCDs as per Ortho Patient seen in collaboration with Dr. Thomas. Thank you for this consultation. We will follow the patient with you during their hospital stay. You can reach a member of the [facility] Hospitalist Team 13/05 via the [facility] Hospitalist role in [place] Text. Admission and Anticipated Discharge Date Admission Date: May 12, 2023 Supervising Physician Co-Signing Physician Notes Attending addendum: The patient was seen and examined in medical floor She has been feeling much better to be discharged this afternoon Denies any significant symptoms On examination Sitting on a chair without any acute distress Remains hemodynamically stable Chest-decreased breath sounds bilaterally with minimal wheezing Heart-S1-S2, regular Abdomen-benign Extremities-negative for any edema Labs and imaging studies reviewed Medications reviewed Agree with assessment and plan as outlined above by iSlva thomas Subjective Follow-up for medical management, s/p right TSA by Dr. Pedroza. Patient seen and examined. Sitting up in the chair. Reports she is feeling well, eager to be discharged. Reports pain is controlled with current regimen. Denies chest pain. No shortness of breath at rest, oxygen helping with exertional shortness of breath. No abdominal pain or nausea. Urinating and + BM without difficulty. Physical Exam Constitutional: WD/WN, vitals as above + obese; no acute distress Respiratory: normal respiratory effort, lungs clear to auscultation Cardiovascular: Rate/Rhythm: regular rate and regular rhythm Vessels: normal peripheral pulses Extremities: no edema Gastrointestinal (Abdomen): Percussion/Palpation: abdomen soft; abdomen nontender Musculoskeletal: S/p right shoulder surgery, dressing CDI, CSM checks intact RUE Skin: no rashes, warm and dry Neurologic: no focal motor deficits Psychiatric: A+Ox3, euthymic affect Results & Data Results & Data Vital Signs (Past 12 Hours) Vital Signs Temp Pulse Resp BP Pulse Ox O2 Del Method O2 Flow Rate 05/14/23 10:37 36.4 C L 81 16 135/85 93 05/14/23 09:41 Room Air 05/14/23 07:31 36.4 C L 81 16 135/85 93 Nasal Cannula 2 Laboratory Results Short CBC 05/14/23 Range/Units 06:07 WBC 8.96 (4.8-10.8) K/ul Hgb 13.7 (12.0-16.0) g/dl Hct 40.8 (37.0-47.0) % Plt Count 252 (130-400) K/uL BMP 05/14/23 06:07 Sodium 139 Potassium 3.8 Chloride 101 Carbon Dioxide 33 H BUN 22 Creatinine 0.51 L Glucose 106 H Calcium 8.6
== END 2023-05-14 11:48 | disposition home health service (06) | DRG 483 ==
LOC: ASU 08:32 → 3E 08:32